=== PATIENT | male | born 1940 | race Caucasian/White ===

== ENCOUNTER 2017-01-19 06:17 | Inpatient (IN) | payer OTHER ==
[2017-01-10 09:19] VITALS: BMI 40.0
--- NOTE | 2017-01-10 09:45 | PAT Medication Instructions ---
Service Date Jan 10, 2017. Current Home Medication List Aspirin (Aspirin Ec), 81 MG PO BID Multivitamin (Multivitamin), 1 TAB PO QAM Omeprazole (Prilosec), 40 MG PO DAILY PRN for STOMACH Simvastatin (Zocor), 10 MG PO QPM Tamsulosin Hcl (Flomax), 0.4 MG PO QPM Tramadol (Ultram), 100 MG PO Q4H PRN for Pain Trazodone Hcl (Trazodone), 100 MG PO HS PRN for Sleep Medication Instructions For Your Scheduled Surgery - One week prior to surgery, switch to once daily Aspirin 81mg - Hold the following medications the morning of surgery: Multivitamin (Multivitamin), 1 TAB PO QAM - Take the following medications the morning of surgery with a sip of water OTHERWISE NOTHING TO EAT OR DRINK AFTER MIDNIGHT: Omeprazole (Prilosec), 40 MG PO DAILY PRN for STOMACH Tramadol (Ultram), 100 MG PO Q4H PRN for Pain (okay to take if needed up to 4 hours prior to surgery) - Take the following medications as scheduled the night before surgery: Simvastatin (Zocor), 10 MG PO QPM Tamsulosin Hcl (Flomax), 0.4 MG PO QPM Trazodone Hcl (Trazodone), 100 MG PO HS PRN for Sleep Tramadol (Ultram), 100 MG PO Q4H PRN for Pain If you have any questions please call us at [phone] or [phone] or [phone]
[2017-01-10 10:24] LABS: BASO % 0.3 %; BASO ABS # 0.02 K/uL (0-0.2); COMPLETE YES; EOS % 3.3 %; HEMATOCRIT 41.2 % (42-52); IG% 0.3 %; LYMPH % 21.2 %; LYMPH ABS # 1.39 K/uL (1.2-3.4); MEAN CELL VOLUME 91.6 fL (80-100); MEAN CORPUSCULAR HEMOGLOBIN 30.9 pg (25-34); MEAN CORPUSCULAR HGB CONC 33.7 g/dl (32-36); MEAN PLATELET VOLUME 10.2 fL (7.4-10.4); NEUT % 65.9 %; PLATELET COUNT 156 K/uL (130-400); WHITE BLOOD COUNT 6.57 K/uL (4.8-10.8)
[2017-01-10 10:29] LABS: URINE APPEARANCE CLEAR (CLEAR); URINE BILIRUBIN NEG (NEG); URINE COLOR DK YELLOW; URINE NITRITE NEG (NEG); URINE PH 6.5 (4.5-7.5); URINE SPECIFIC GRAVITY 1.024 (1.000-1.030); UROBILINOGEN NEG (NEG)
[2017-01-10 10:34] LABS: MANUAL MICROSCOPIC REQUIRED? NO; REVIEW REQ? NO
--- NOTE | 2017-01-10 10:35 | DIAGNOSTIC IMAGING REPORT ---
CHEST PREADMISSION(PA/LAT) CLINICAL HISTORY: PAT preoperative evaluation COMPARISON STUDY: 2015 FINDINGS: Moderate stable cardia megaly. Lungs are clear. Diaphragms are smooth. Stable degenerative changes thoracic spine. IMPRESSION: Moderate stable cardia megaly. Otherwise negative study Electronically signed by: Norman De La Rosa M.D. 01/10/2017 10:33 AM Dictated Date/Time: 01/10/2017 10:33 AM
[2017-01-10 10:43] LABS: PARTIAL THROMBOPLASTIN RATIO 1.1; PROTHROMBIN TIME (PATIENT) 11.2 SECONDS (9.0-12.0)
[2017-01-10 10:48] LABS: ESTIMATED AVERAGE GLUCOSE 140 mg/dl; HA1C FLAG Normal (Normal)
[2017-01-10 11:39] LABS: BUN/CREATININE RATIO 24.7 (10-20); CALCIUM 9.3 mg/dl (8.5-10.1); CREATININE 0.91 mg/dl (0.60-1.40); POTASSIUM 4.4 mmol/L (3.5-5.1)
--- NOTE | 2017-01-18 13:17 | History and Physical ---
History & Physical Date Jan 18, 2017. Chief Complaint Right knee pain History of Present Illness The patient is a 76 year old male with complaints of right knee pain and disability. He has known severe DJD. He had previous successful left TKA. He has failed conservative care and now desires to proceed with right TKA Past Medical/Surgical History Surgical Problems: (1) Post-operative state Additional History Hepatic Disease: No Endocrine Disorder: No Kidney Disease: No Hypertension: No Heart Disease: No Bleeding Tendencies: No Infectious Diseases: No Other: Hypercholesterolemia Allergies Coded Allergies: Azithromycin (Verified Allergy, Mild, HIVES, 03/21/16) Penicillins (Verified Allergy, Mild, HIVES, 03/21/16) Oxycodone (Verified Allergy, Unknown, HIVES, ITCHING, 01/10/17) Home Medications Scheduled Aspirin (Aspirin Ec), 81 MG PO BID Multivitamin (Multivitamin), 1 TAB PO QAM Simvastatin (Zocor), 10 MG PO QPM Tamsulosin Hcl (Flomax), 0.4 MG PO QPM Scheduled PRN Omeprazole (Prilosec), 40 MG PO DAILY PRN for STOMACH Tramadol (Ultram), 100 MG PO Q4H PRN for Pain Trazodone Hcl (Trazodone), 100 MG PO HS PRN for Sleep Physical Examination Skin: warm/dry Eyes: normal inspection, EOMI ENT: normal ENT inspection Head: normocephalic Neck: supple, no adenopathy Respiratory/Chest: lungs clear Cardiovascular: regular rate, rhythm Abdomen / GI: normal bowel sounds Extremities: + pertinent finding (Right knee with varus alignment, ROM ~ -5- 120 degrees) Addiitonal Comments: Xrays: varus aligned knee, bone on bone arthritis medial compartment Diagnosis Right knee end-stage DJD Plan of Treatment Right total knee arthroplasty
[2017-01-19] VITALS (9 sets, daily range): BP systolic 128–178; BP diastolic 72–93; PULSE 53–77; TEMP 36.6–37; O2SAT 93–98; Ht 177.8 cm; Wt 126.7 kg
[~2017-01-19] VITALS: Ht 177.8 cm; Wt 126.7 kg
[~2017-01-19 06:17] MED LIST: ACETAMINOPHEN 500 MG TAB PO SCH; ASPI81TA28 PO; CLINDAMYCIN 600 MG/54 ML D5W 54 ML IV SCH; CeleBREX 200 MG CAP PO SCH; DEXAMETHASONE 4 MG TAB PO SCH; FAMOTIDINE 20 MG TAB PO SCH; GABAPENTIN 300 MG CAP PO SCH; LACTATED RINGER'S 1000ML 1,000 ML IV SCH; LACTATED RINGER'S 1000ML 500 ML IV ONE; METOCLOPRAMIDE HCL 10 MG TAB PO SCH; MULT-506 PO; OMEP40CA PO; ROPIVACAINE 5MG/ML 30 ML 150 MG, BUPIVACAINE/EPINEPHR 0.5% MPF 30 ML, KETOROLAC TROMETH... INFIL SCH; SIMV10TA2 PO; TAMS0.4C38 PO; TRAM-10 PO; TRAZ100T29 PO
[2017-01-19] MEDS ORDERED: BUPIVACAINE 0.25% 30 ML VIAL ONE (06:25)
[2017-01-19] MEDS ORDERED: BUPIVACAINE 0.5 % 5 MG/1 ML PF 10ML VIAL ONE (06:25)
[2017-01-19] MEDS: TRANEXAMIC ACID INJ 1,000 MG in SODIUM CHLORIDE 0.9% 100ML 100 ML IV SCH ×2 (06:30→08:40)
--- NOTE | 2017-01-19 07:06 | History & Physical Bridge Note ---
H&P Re-Evaluation Bridge Note: I have examined the patient, reviewed the History & Physical and in the interval since the performance of the History & Physical I have noted the following changes of clinical significance: No changes noted
[2017-01-19] MEDS ORDERED: POVIDONE-IODINE OP SOLN 30 ML BTL ONE (07:39)
[2017-01-19] MEDS ORDERED: ORTHO JOINT ANESTHETIC ONE (07:39)
[2017-01-19] MEDS ORDERED: BACITRACIN 50000 UNIT VIAL ONE (07:39)
[2017-01-19] MEDS ORDERED: MIDAZOLAM HCL 1 MG/ML 2ML VIAL ONE ×2 (07:45)
[2017-01-19] MEDS ORDERED: FENTANYL CITRATE INJ 50 MCG/1 ML 2 ML VIAL ONE (07:45)
[2017-01-19] MEDS ORDERED: PROPOFOL IV EMULSION 10 MG/ML 20 ML VIAL IV ONE (07:47)
[2017-01-19] MEDS ORDERED: ONDANSETRON INJ 2 MG/ML 2 ML VIAL ONE (07:47)
[2017-01-19] MEDS ORDERED: EpHEDrine SULFATE INJ 50 MG/ML AMP IV PRN (08:00)
[2017-01-19] MEDS ORDERED: ONDANSETRON INJ 2 MG/ML 2 ML VIAL IV PRN ×2 (08:00→11:00)
[2017-01-19] MEDS ORDERED: ATROPINE SULFATE 0.1 MG/ML 5ML SYR IV PRN (08:00)
--- NOTE | 2017-01-19 10:30 | [facility] Operative Report ---
Operative Report Operative Date Jan 19, 2017. Pre-Operative Diagnosis Right Knee End-Stage Degenerative Joint Disease Post-Operative Diagnosis Right Knee End-Stage Degenerative Joint Disease Procedure(s) Performed Right Total Knee Arthroplasty, Cemented Surgeon Dr. Bustamante Industrial Manufacturing Technician Surgeon(s) Kip Morales PA-C Estimated Blood Loss 10 mL Findings OA Specimens A: Right Knee Bone and Tissue Description of Procedure Patient's right leg was prepped and draped in usual sterile manner. The limb was exsanguinated with an Esmarch bandage internal was inflated to 300 mmHg. A longitudinal incision was made some retained tissue was sharply dissected electrocautery and AquaMED history used for hemostasis. A median parapatellar incision was made the patella was everted and the knee was flexed. Fat pad was removed and the medial face the tibia was cleared of soft tissue using a Bovie and a Cannon this is retracted back using a blunt Katerine. Next medullary alignment guide was placed and the proximal tibial osteotomy was made using oscillating saw. This bone fragment was removed using a knife and the bone tenaculum. Next attention was turned to the distal femur. The drill was used to get axis to the femoral canal. The flexible intermedullary guide patricio was placed and the distal femoral cut was made with a 10 mm resection. Following this the femur was sized to a size 5 was chosen and the distal femoral chamfer cuts were made using the oscillating saw. Next the intercondylar notch was cut using the appropriate guide. This bone fragment was removed. A lamina client finance analyst was used to gain access to the menisci which were removed. AquaMED this was used posteriorly to gain hemostasis. 5 trial femoral component was impacted into position and the tibia was presented using a blunt Katerine and a sharp. Size 4 tibial component was chosen and sized to be used. The tibia was prepared using the appropriate punch and a mallet and the tibia was reduced using an 11 mm plastic trial. This gave good reproduction of soft tissue tension and full extension. Next the patellar reaming blade was used to ream the patella and a size 39 patella was chosen size views. The 3 drill holes were used for the pegs. Patella was then placed and he was taken through full range of motion and the patella tracked well. All trial components removed the joint mix was utilized posteriorly and pericapsular really the bone plug was prepared and impacted into the femoral canal and pulsatile irrigation was used throughout the knee. Cement was mixed final components were obtained and cemented in position. Knee was held in extension while cement hardened. A Hemovac drain was placed Following this the wound was closed using #1 Vicryl #2 FiberWire for the extensor mechanism and 0 Dexon for subcutaneous tissue and tanna for skin a Silverlon dressing was applied. The patient was taken to recovery in stable in good condition he tolerated the procedure well. I attest to the content of the Intraoperative Record and any orders documented therein. Any exceptions are noted below.
[2017-01-19] MEDS ORDERED: TRAZODONE HCL 100 MG TAB PO PRN (11:00)
[2017-01-19] MEDS ORDERED: ALUMINUM/MAGNESIUM/SIMETH (MAALOX MAX) 30 ML UDC PO PRN (11:00)
[2017-01-19] MEDS ORDERED: BISACODYL 10 MG SUPP PR PRN (11:00)
[2017-01-19] MEDS ORDERED: MAGNESIUM HYDROXIDE SUSP 30 ML UDC PO PRN (11:00)
[2017-01-19] MEDS ORDERED: MoRPHine SULFATE 4 MG/ML 1 ML CARP\\VIAL IV PRN (11:00)
--- NOTE | 2017-01-19 11:24 | DIAGNOSTIC IMAGING REPORT ---
RIGHT KNEE 1 OR 2 VIEWS ROUTINE CLINICAL HISTORY: Postop examination COMPARISON: None. DISCUSSION: There are postsurgical changes of a total right knee arthroplasty and patellar resurfacing. The femoral and tibial components appear well seated. Overlying skin tanna and surgical drains are evident. There is air in the soft tissues consistent with recent surgery. IMPRESSION: Postsurgical changes of a total right knee arthroplasty. Electronically signed by: Jignesh Newsome M.D. 01/19/2017 11:23 AM Dictated Date/Time: 01/19/2017 11:22 AM
--- NOTE | 2017-01-19 12:23 | Anesthesiology Progress Note ---
Anesthesia Post Op Note Date & Time Jan 19, 2017 at 12:23 Vital Signs Pain Intensity: 0 Vital Signs Past 12 Hours Date Time Temp Pulse Resp B/P (MAP) Pulse Ox O2 Delivery O2 Flow Rate FiO2 01/19/17 11:55 65 18 120/63 97 Nasal Cannula 4 01/19/17 11:45 60 18 119/64 96 Nasal Cannula 4 01/19/17 11:35 66 18 110/63 95 Nasal Cannula 4 01/19/17 11:25 64 18 119/61 97 Nasal Cannula 4 01/19/17 11:15 71 18 121/64 95 Nasal Cannula 4 01/19/17 11:05 69 18 122/57 99 Oxymask 10 01/19/17 10:55 79 18 100/64 99 Oxymask 10 01/19/17 10:48 36.1 77 16 99/47 97 Oxymask 10 01/19/17 06:42 37 63 20 178/93 96 Room Air Notes Mental Status: alert / awake / arousable, participated in evaluation Pt Amnestic to Procedure: Yes Nausea / Vomiting: adequately controlled Pain: adequately controlled Airway Patency, RR, SpO2: stable & adequate BP & HR: stable & adequate Hydration State: stable & adequate Neuraxial Anesthesia: was administered, sensory block is resolving Anesthetic Complications: no major complications apparent
[2017-01-19] MEDS: D5W AND 1/2NSS + 20MEQ KCL 1,000 ML IV SCH (13:58)
[2017-01-19] MEDS: KETOROLAC TROMETHAMINE 15 MG/ML VIAL IV. SCH ×2 (13:59→20:39)
[2017-01-19] MEDS: TRAMADOL HCL 50 MG TAB PO PRN (16:41)
[2017-01-19] MEDS: CLINDAMYCIN IV 600 MG in DEXTROSE 5% 50ML 50 ML IV SCH (18:27)
[2017-01-19] MEDS: FERROUS GLUCONATE 324 MG TAB PO SCH (18:27)
[2017-01-19] MEDS: MoRPHine SULFATE 2 MG/ML CARP IV PRN ×2 (18:28→22:46)
[2017-01-19] MEDS: DOCUSATE SODIUM 100 MG CAP PO SCH (20:39)
[2017-01-19] MEDS: ASPIRIN 81 MG ECTAB PO SCH (20:40)
[2017-01-19] MEDS: TAMSULOSIN HCL 0.4 MG CAP PO SCH (20:40)
[2017-01-19] MEDS: MoRPHine SULFATE CR 15 MG TAB (MS CONTIN) PO SCH (20:40)
[2017-01-19] MEDS: SIMVASTATIN 10 MG TAB PO SCH (20:41)
[2017-01-19] MEDS: SENNA 8.6 MG TAB PO SCH (20:41)
[2017-01-20] VITALS (7 sets, daily range): BP systolic 123–151; BP diastolic 67–76; PULSE 50–58; TEMP 36.5–36.8; O2SAT 94–98
[2017-01-20] MEDS: D5W AND 1/2NSS + 20MEQ KCL 1,000 ML IV SCH (00:14)
[2017-01-20] MEDS: KETOROLAC TROMETHAMINE 15 MG/ML VIAL IV. SCH ×2 (01:47→07:53)
[2017-01-20] MEDS: HYDROCODONE/ACETAMOPHEN 5/325MG TAB PO PRN ×5 (01:47→23:44)
[2017-01-20] MEDS: CLINDAMYCIN IV 600 MG in DEXTROSE 5% 50ML 50 ML IV SCH (01:54)
[2017-01-20 06:47] LABS: MEAN CELL VOLUME 91.4 fL (80-100); MEAN CORPUSCULAR HEMOGLOBIN 30.3 pg (25-34); MEAN CORPUSCULAR HGB CONC 33.1 g/dl (32-36); PLATELET COUNT 178 K/uL (130-400); RED BLOOD COUNT 3.83 M/uL (4.7-6.1); WHITE BLOOD COUNT 16.15 K/uL (4.8-10.8)
[2017-01-20 07:23] LABS: BLOOD UREA NITROGEN 24 mg/dl (7-18); BUN/CREATININE RATIO 23.9 (10-20); CALCIUM 8.8 mg/dl (8.5-10.1); CARBON DIOXIDE 28 mmol/L (21-32); CHLORIDE 104 mmol/L (98-107); CREATININE 0.99 mg/dl (0.60-1.40); GLUCOSE 183 mg/dl (70-99); SODIUM 138 mmol/L (136-145)
--- NOTE | 2017-01-20 07:42 | Orthopedic Progress Note ---
Orthopedic Progress Note Date of Service Jan 20, 2017. Subjective Post OP Day: 1 Reports: feeling well Objective N/V intact, dressing C/D/I (Hemovac in place), toes mobile (Mild footdrop) Date Time Temp Pulse Resp B/P (MAP) Pulse Ox O2 Delivery O2 Flow Rate FiO2 01/20/17 07:20 Room Air 01/20/17 07:20 36.5 50 19 128/76 (93) 96 Room Air 01/20/17 03:30 36.8 56 18 127/68 (87) 96 Room Air 01/20/17 00:29 Room Air 01/19/17 22:43 36.7 53 18 132/72 (92) 94 Room Air 01/19/17 20:52 96 Room Air 01/19/17 19:59 36.6 65 18 142/85 (104) 94 Room Air 01/19/17 16:30 Nasal Cannula 2.0 01/19/17 15:40 36.8 54 20 138/77 (97) 94 Nasal Cannula 2.0 01/19/17 14:40 64 18 128/74 (92) 98 Nasal Cannula 2.0 01/19/17 13:39 93 Nasal Cannula 2.0 01/19/17 13:39 56 18 136/74 (94) 96 Nasal Cannula 2.0 01/19/17 13:10 67 16 143/83 (103) 95 Nasal Cannula 2.0 01/19/17 12:40 37.0 77 18 132/79 (96) 93 Nasal Cannula 2.0 01/19/17 12:40 Nasal Cannula 2.0 01/19/17 12:15 37.7 65 18 118/56 97 Nasal Cannula 4 01/19/17 12:05 65 18 133/67 97 Nasal Cannula 4 01/19/17 11:55 65 18 120/63 97 Nasal Cannula 4 01/19/17 11:45 60 18 119/64 96 Nasal Cannula 4 01/19/17 11:35 66 18 110/63 95 Nasal Cannula 4 01/19/17 11:25 64 18 119/61 97 Nasal Cannula 4 01/19/17 11:15 71 18 121/64 95 Nasal Cannula 4 01/19/17 11:05 69 18 122/57 99 Oxymask 10 01/19/17 10:55 79 18 100/64 99 Oxymask 10 01/19/17 10:48 36.1 77 16 99/47 97 Oxymask 10 Laboratory Results 24 Hours: Test 01/20/17 06:00 Hematocrit 35.0 % Hemoglobin 11.6 g/dL Assessment & Plan Assessment: 76 yo male stable POD #1 s/p right TKA Plan: 1. Med management 2. DVT prophylaxis- ASA, SCDs 3. PT/OT 4. D/C planning- home w/ HH
--- NOTE | 2017-01-20 07:44 | Discharge Instructions ---
Discharge Instructions Date of Service Jan 20, 2017. Admission Reason for Admission: Unilateral Primary Osteoarthritis, Right Knee Discharge Discharge Diagnosis / Problem: Right knee arthritis Discharge Goals Goal(s): Decrease discomfort, Improve function Activity Recommendations Activity Limitations: as noted below Weightbearing Status: Right weightbearing (as tolerated) . Instructions / Follow-Up Instructions / Follow-Up ACTIVITY RECOMMENDATIONS: SELF CARE INSTRUCTIONS AFTER TOTAL KNEE REPLACEMENT A. You may need to continue a physical therapy program after discharge from the hospital. There are several options available to you. Your doctor will assist you in selecting the best one for you. 1. An out-patient facility 2 to 3 times a week for therapy or home therapy. 2. Continue working on all exercises taught to you in the hospital. Your goals should be to increase bending of your knee to 90 degrees and beyond and to fully straighten your knee. B. You may progress at your own pace from walking with a walker or crutches to a cane; then to no assistive devices. C. Make walking a part of your daily routine. Be up as much as comfortable with rest periods throughout the day. Rest with leg elevation is very important. Use the ice wrap frequently for the first 3-4 weeks. D. There are no restrictions on activities. You may ride in a car, shop, participate in health promotion manager and all social activities. E. Wear the long elastic stockings (CANDICE hose) 20 hours a day for 2 weeks after surgery. They can be removed several times a day for laundering and for a bath. F. You may shower, no tub baths until cleared by your doctor. SPECIAL CARE INSTRUCTIONS: VERY IMPORTANT TO READ AND REVIEW A. There are a few signs you need to watch for after you are home. Call [facility] if you notice any of the followin. Increased severe knee pain. Some pain is expected especially when you exercise. 2. Increased swelling in your leg or knee; pain or swelling of the calf muscle in either lower leg. 3. Any fluid drainage from the incision. 4. Shortness of breath or chest pain. B. Please call [facility] at if you have any concerns or questions about your operation or recovery. The doctor or his nurse will return your call promptly. C. You must take antibiotics before dental work, bladder, bowel or other surgery. Your doctor will provide you with a permanent care to carry describing this precaution. IMPORTANT: * REMEMBER TO TAKE ASPIRIN, 81 MG, TWICE DAILY FOR 4 WEEKS UNLESS OTHERWISE DIRECTED. THIS IS YOUR BLOOD THINNER. * HIGH RISK PATIENTS MAY BE PRESCRIBED A STRONGER BLOOD THINNER. THIS WILL BE PROVIDED AT DISCHARGE. * CALL IF INCREASED PAIN, REDNESS, DRAINAGE OR FEVER GREATER THAT 101. * WEAR CANDICE HOSE 20 HOURS PER DAY FOR 2 WEEKS. Silverlon- This is a large adhesive bandage that contains silver ions. This helps your incision heal by fighting off bacteria and protecting it from the outside environment. You are permitted to shower with this dressing. This will remain on your incision for 7 days and then should be removed. Some visible blood or drainage through the dressing window is normal. If there is significant drainage or leaking noted before the 7 days notify your doctor's office immediately. Once removed, keep incision clean and dry. If there is any drainage or redness noted, please call your surgeon. FOLLOW UP VISIT: If appointment is not already scheduled: Please call [facility] to make a follow-up appointment for 2 weeks after your surgery at . Current Hospital Diet Patient's current hospital diet: Regular Diet Discharge Diet Recommended Diet: Regular Diet Procedures Procedures Performed: Right Total Knee Arthroplasty, Cemented Pending Studies Studies pending at discharge: no Laboratory Results Hemoglobin A1c Test 01/10/17 09:58 Range/Units Estimated Average Glucose 140 mg/dl Hemoglobin A1c 6.5 H 4.5-5.6 % Medical Emergencies . Who to Call and When: Medical Emergencies: If at any time you feel your situation is an emergency, please call 911 immediately. . Non-Emergent Contact Non-Emergency issues call your: Surgeon Call Non-Emergent contact if: temperature is above 101.5, your pain is not controlled, wound has increased drainage, wound has increased redness . "Provider Documentation" section prepared by Celio Soto PA-C. . VTE Core Measure Inpt VTE Proph given/why not?: Other Anticoagulation (ASA 81mg bid), T.E.D. Stockings, SCD's [place] Drug Monitoring Program Search Results: patient reviewed within database, no issues identified
--- NOTE | 2017-01-20 08:04 | Anesthesiology Progress Note ---
Anesthesia Post Op Note Date & Time Jan 20, 2017 at 08:04 Vital Signs Pain Intensity: 8.0 Vital Signs Past 12 Hours Date Time Temp Pulse Resp B/P (MAP) Pulse Ox O2 Delivery O2 Flow Rate FiO2 01/20/17 07:20 Room Air 01/20/17 07:20 36.5 50 19 128/76 (93) 96 Room Air 01/20/17 03:30 36.8 56 18 127/68 (87) 96 Room Air 01/20/17 00:29 Room Air 01/19/17 22:43 36.7 53 18 132/72 (92) 94 Room Air 01/19/17 20:52 96 Room Air Notes Mental Status: alert / awake / arousable, participated in evaluation Pt Amnestic to Procedure: Yes Nausea / Vomiting: adequately controlled Pain: adequately controlled Airway Patency, RR, SpO2: stable & adequate BP & HR: stable & adequate Hydration State: stable & adequate Neuraxial Anesthesia: sensory block resolved Anesthetic Complications: no major complications apparent
[2017-01-20] MEDS: FERROUS GLUCONATE 324 MG TAB PO SCH ×3 (08:41→18:52)
[2017-01-20] MEDS: PANTOprazole SOD 40 MG TAB PO SCH (08:41)
[2017-01-20] MEDS: DOCUSATE SODIUM 100 MG CAP PO SCH ×2 (08:41→20:27)
[2017-01-20] MEDS: ASPIRIN 81 MG ECTAB PO SCH ×2 (08:42→20:27)
[2017-01-20] MEDS: MULTIVITAMIN TAB PO SCH (08:42)
[2017-01-20] MEDS: MoRPHine SULFATE CR 15 MG TAB (MS CONTIN) PO SCH ×2 (08:42→20:26)
[2017-01-20] MEDS ORDERED: MULTIVITAMIN TAB PO SCH (09:00)
[2017-01-20] MEDS: TRAMADOL HCL 50 MG TAB PO PRN (15:25)
[2017-01-20] MEDS: SENNA 8.6 MG TAB PO SCH (20:27)
[2017-01-20] MEDS: TAMSULOSIN HCL 0.4 MG CAP PO SCH (20:28)
[2017-01-20] MEDS: SIMVASTATIN 10 MG TAB PO SCH (20:29)
[2017-01-21] MEDS: HYDROCODONE/ACETAMOPHEN 5/325MG TAB PO PRN ×2 (05:54→12:16)
[2017-01-21 06:27] VITALS: BP 148/82; PULSE 66; TEMP 37.3; O2SAT 93
[2017-01-21] MEDS: FERROUS GLUCONATE 324 MG TAB PO SCH ×2 (08:05→12:15)
[2017-01-21] MEDS: PANTOprazole SOD 40 MG TAB PO SCH (08:05)
[2017-01-21] MEDS: MULTIVITAMIN TAB PO SCH (08:06)
[2017-01-21] MEDS: DOCUSATE SODIUM 100 MG CAP PO SCH (08:06)
[2017-01-21] MEDS: TRAMADOL HCL 50 MG TAB PO PRN (08:06)
[2017-01-21] MEDS: MoRPHine SULFATE CR 15 MG TAB (MS CONTIN) PO SCH (08:06)
[2017-01-21] MEDS: ASPIRIN 81 MG ECTAB PO SCH (08:06)
--- NOTE | 2017-01-21 09:41 | Orthopedic Progress Note ---
Orthopedic Progress Note Date of Service Jan 21, 2017. Subjective Post OP Day: 2 Reports: feeling well, pain controlled w PO medications, Denies: chest pain, SOB , nausea / vomiting, light headedness, calf pain Objective calves soft nontender, capillary refill less than 2 sec., dressing C/D/I, A&O x3 , toes mobile Date Time Temp Pulse Resp B/P (MAP) Pulse Ox O2 Delivery O2 Flow Rate FiO2 01/21/17 06:27 37.3 66 18 148/82 (104) 93 Room Air 01/20/17 23:44 Room Air 01/20/17 22:54 36.6 58 16 151/75 (100) 96 Room Air 01/20/17 16:30 94 Room Air 01/20/17 15:46 36.8 53 18 148/72 (97) 94 Room Air 01/20/17 12:00 36.6 53 16 123/69 (87) 96 Room Air 01/20/17 10:53 57 98 Assessment & Plan Assessment: 76 yo male stable POD #2 s/p right TKA Plan: 1. Med management 2. DVT prophylaxis- ASA, SCDs 3. PT/OT 4. D/C planning- home w/ HH Inhouse Planning Pain Management: Ultram, Ramer DVT Prophylaxis: TEDs, SCDs, ASA Discharge Planning Discharge Planning: home with home health Pain Management: Oxycontin, Oxy IR DVT Prophylaxis: TEDs, ASA Therapy: Physical Therapy Discharge Planning Notes: plan for discharge today with HH
[2017-01-21] MEDS ORDERED: FRRG PO (09:43)
[2017-01-21] MEDS ORDERED: HYDR-5688 PO (09:43)
[2017-01-21] MEDS ORDERED: ULT50X PO (09:43)
[2017-01-21 10:34] VITALS: BP 148/82; PULSE 66; TEMP 37.3; O2SAT 93
--- NOTE | 2017-01-24 19:55 | DISCHARGE SUMMARY ---
DISCHARGE DIAGNOSIS: Degenerative joint disease, right knee. SECONDARY DIAGNOSIS: Hypercholesterolemia. CONSULTS: None. COMPLICATIONS: None. PROCEDURE: Right total knee arthroplasty performed by Dr. Bustamante on 01/19/2017. Brief history is as dictated in history and physical. HOSPITAL SUMMARY: The patient was admitted on the above noted date, had the above noted surgery performed which he tolerated well. On the first postoperative day, the patient was feeling well and neurovascularly intact. Dressings were clean, dry and intact. Toes were mobile. He had a very mild footdrop. Vital signs were stable, he was afebrile. Hemoglobin was 11.6. He was started on physical therapy protocol and continued on DVT prophylaxis and pain management. By his second postoperative day, he was feeling well and pain was controlled. He had no complaints. Calves were soft and nontender, capillary refill was less than 2 seconds. Dressings were clean, dry and intact. Toes were mobile. Vital signs were stable, he was afebrile. He was progressing well with physical therapy and was thought he could be discharged to home. For further view, please see chart, lab and x-ray data as per chart. DISCHARGE INSTRUCTIONS: The patient was discharged to home in satisfactory condition on 01/21/2017. DIET: Regular. ACTIVITY: Weightbearing as tolerated on the right lower extremity. Follow TKA instruction sheets with special care instructions as noted. Follow up with Dr. Bustamante in 2 weeks. The patient to call for appointment if one has not been made for you. DISCHARGE MEDICATIONS: Ferrous gluconate 324 mg p.o. t.i.d., [place] 5/325 1-2 tabs p.o. q. 4 hours p.r.n., tramadol 50-100 mg p.o. q. 4 hours p.r.n. Resume aspirin 81 mg p.o. b.i.d., multivitamin 1 tab p.o. q.a.m., omeprazole 40 mg p.o. daily, simvastatin 10 mg p.o. q.p.m., Flomax 0.4 mg p.o. q.p.m., and trazodone 100 mg p.o. at bedtime p.r.n. sleep.
--- NOTE | 2017-01-27 07:10 | CODING QUERY MEDICAL NECESSITY ---
CQSUPPORTING DIAGNOSIS NEEDED A supporting diagnosis is required for the test/procedure performed on this patient in order for us to be reimbursed by the patient's insurance. Please provide a supporting diagnosis for the following test/procedure listed below next to the test name along with your signature. *If there is no additional diagnosis for this patient that would support the following test/procedure please document that below next to the test/procedure. Test(s)/Procedure(s) that require a supporting diagnosis: DOS 01/10/17 GLYCATED HEMOGLOBIN TEST BLOOD COUNT TEST THIS WAS DONE PRESURGERY LAB WORK Provider Signature: Date: Thank you Stacey Goodwin Health Information Management Once completed, please kindly fax back to [phone] For questions please call [phone]
== END 2017-01-21 13:53 | disposition home health service (06) | DRG 470 ==
LOC: C.ACU 06:17 → C.3E 07:00 → ENRESERV 11:57
PROC: 0SRC0J9 Replacement of Right Knee Joint with Synthetic Substitute, Cemented, Open Approach (ICD-10-PCS; principal; 2017-01-19 08:45)
DX: M17.11 Unilateral primary osteoarthritis, right knee (principal); Z01.812 Encounter for preprocedural laboratory examination

== ENCOUNTER 2017-04-28 14:19 | Emergency (ER) | payer OTHER ==
[~2017-04-28] VITALS: Ht 177.8 cm; Wt 125.3 kg
[~2017-04-28 14:19] MED LIST changes: -ACETAMINOPHEN 500 MG TAB PO SCH; -CLINDAMYCIN 600 MG/54 ML D5W 54 ML IV SCH; -CeleBREX 200 MG CAP PO SCH; -DEXAMETHASONE 4 MG TAB PO SCH; -FAMOTIDINE 20 MG TAB PO SCH; +FRRG PO; -GABAPENTIN 300 MG CAP PO SCH; +HYDR-5688 PO; -LACTATED RINGER'S 1000ML 1,000 ML IV SCH; -LACTATED RINGER'S 1000ML 500 ML IV ONE; -METOCLOPRAMIDE HCL 10 MG TAB PO SCH; -ROPIVACAINE 5MG/ML 30 ML 150 MG, BUPIVACAINE/EPINEPHR 0.5% MPF 30 ML, KETOROLAC TROMETH... INFIL SCH; +ULT50X PO
[2017-04-28 14:24] VITALS: TEMP 36.7; Ht 177.8 cm; Wt 125.3 kg
[2017-04-28 14:42] VITALS: O2SAT 98
[2017-04-28] MEDS ORDERED: SODIUM CHLORIDE 0.9% 1000ML 1,000 ML IV STA (14:51)
[2017-04-28 15:02] LABS: BASO % 0.2 %; BASO ABS # 0.02 K/uL (0-0.2); COMPLETE YES; EOS % 1.4 %; HEMATOCRIT 40.4 % (42-52); IG% 0.4 %; LYMPH % 20.1 %; LYMPH ABS # 1.88 K/uL (1.2-3.4); MEAN CELL VOLUME 87.6 fL (80-100); MEAN CORPUSCULAR HEMOGLOBIN 30.2 pg (25-34); MEAN CORPUSCULAR HGB CONC 34.4 g/dl (32-36); MEAN PLATELET VOLUME 9.7 fL (7.4-10.4); MONO % 7.3 %; NEUT % 70.6 %; PLATELET COUNT 192 K/uL (130-400); RED BLOOD COUNT 4.61 M/uL (4.7-6.1); WHITE BLOOD COUNT 9.34 K/uL (4.8-10.8)
--- NOTE | 2017-04-28 15:07 | EMERGENCY ROOM VISIT NOTE ---
History Report prepared by Maria Del Rosario: Sina Vela Under the Supervision of: Dr. Padmini Sims D.O. First contact with patient: 14:30 Chief Complaint: DIZZY Stated Complaint: NAUSEA, DIZZINESS Nursing Triage Summary: triage note: pt ambulatory to triage. pt reports "i feel miserable." pt reports since monday he has had generalized abd pain, bloating, nausea, dizziness "i feel off balance." History of Present Illness The patient is a 76 year old male who presents to the Emergency Room with complaints of worsening global illness and dizziness for the past couple of days. The patient states that he has been having bloating, gas, and abdominal pain, and he still feels like his abdomen is distended. Additionally, the patient states that he has been having rhinorrhea, and he has been having a productive cough. He notes that he has been having a choking feeling in his throat that he has to cough up for the past couple of months. He states that he has not been able to sleep because lying down makes it worse. The patient also states that he has been having 2-3 bowel movements of loose stool per day. The patient states that his dizziness is worse when standing up. He additionally is complaining of fevers, chills, nausea, vomiting, and chest heaviness. Also, he states that he has been having left neck and shoulder pain for the past while, though he attributes that to a fall. The patient states that he was never a smoker or asthmatic, and he states that his is currently sick as well. Pt denies headache, change in vision, shortness of breath, pain with urination, difficulty with urination, and melena. Source of History: patient Onset: the past couple days Position: other (global) Quality: other (illness and dizziness) Timing: worsening (q) Associated Symptoms: + fevers, + chills, + cough, + chest pain, + nausea, + vomiting, + abdominal pain Review of Systems See HPI for pertinent positives & negatives. A total of 10 systems reviewed and were otherwise negative. Past Medical & Surgical Medical Problems: (1) Right knee DJD Surgical Problems: (1) Post-operative state Social History Smoking Status: Never Smoker Marital Status: Housing Status: lives with family Occupation Status: retired Current/Historical Medications Scheduled Aspirin (Aspirin Ec), 81 MG PO BID Multivitamin (Multivitamin), 1 TAB PO QAM Tamsulosin Hcl (Flomax), 0.4 MG PO QPM Scheduled PRN Tramadol (Ultram), 100 MG PO Q4H PRN for Pain Trazodone Hcl (Trazodone), 100 MG PO HS PRN for Sleep Allergies Coded Allergies: Azithromycin (Verified Allergy, Mild, HIVES, 04/28/17) Penicillins (Verified Allergy, Mild, HIVES, 04/28/17) Oxycodone (Verified Allergy, Unknown, HIVES, ITCHING, 04/28/17) Physical Exam Vital Signs Date Time Temp Pulse Resp B/P (MAP) Pulse Ox O2 Delivery O2 Flow Rate FiO2 04/28/17 19:31 77 20 162/96 97 04/28/17 18:46 98 Room Air 04/28/17 17:49 65 19 04/28/17 17:19 74 19 04/28/17 16:36 178/96 04/28/17 16:36 67 18 178/96 99 Room Air 04/28/17 15:19 73 20 04/28/17 15:01 180/100 04/28/17 14:49 67 18 96 04/28/17 14:42 98 Room Air 04/28/17 14:38 66 04/28/17 14:37 155/82 04/28/17 14:24 36.7 55 20 210/130 96 Room Air Physical Exam GENERAL: alert, well appearing, well nourished, no distress, non-toxic EYE EXAM: normal conjunctiva, PERRL and EOM's grossly intact OROPHARYNX: no exudate, no erythema, lips, buccal mucosa, and tongue normal and mucous membranes are moist NOSE: Tenderness to the left maxillary sinus NECK: supple, no nuchal rigidity, no adenopathy, non-tender LUNGS: Diminished breath sounds, but no wheezes rhonchi or rales. Normal chest wall mechanics HEART: no murmurs, S1 normal and S2 normal ABDOMEN: Dull to percussion. Abdomen soft, non-tender, normo-active bowel sounds , no masses, no rebound or guarding. BACK: Back is symmetrical on inspection and there is no deformity, no midline tenderness, no CVA tenderness. SKIN: no rashes and no bruising UPPER EXTREMITIES: upper extremities are grossly normal. Full range of motion, normal pulses. LOWER EXTREMITIES: Trace to 1+ lower extremity edema, full range of motion, normal pulses. NEURO EXAM: Normal sensorium, cranial nerves II-XII grossly intact, normal speech, no gross weakness of arms, no gross weakness of legs. Gross sensation intact. Normal gait. Medical Decision & Procedures ER Provider Diagnostic Interpretation: Radiology results have been interpreted by the radiologist and reviewed by me. ABDOMEN 2VIEW W/PA CHEST RTN CLINICAL HISTORY: Abdominal distention, nausea, abdominal pain COMPARISON STUDY: Chest x-ray dated 01/10/2017 FINDINGS: The heart is enlarged. There is aortic tortuosity/ectasia. There is no free air. There is no focal pulmonary consolidation. Erect and supine views the abdomen reveal gaseous prominence of the stomach, small bowel, and colon. There are no transition zone to indicate bowel obstruction. There are moderately advanced degenerative changes within the spine. There are equivocal renal calculi. There are nonspecific pelvic basin calcifications. IMPRESSION: 1. No evidence of bowel obstruction. No evidence of free air 2. Cardiomegaly 3. Suspected mild ileus 4. Possible nephrolithiasis. Nonspecific pelvic basin calcifications. Electronically signed by: Jignesh Newsome M.D. 04/28/2017 3:54 PM Dictated Date/Time: 04/28/2017 3:52 PM VENOUS DOPPLER LW EXT BILAT HISTORY: Pain. Edema. le edema COMPARISON STUDY: None. FINDINGS: There is normal compressibility, flow, and augmentation within the bilateral lower extremity deep venous systems. IMPRESSION: No DVT within the right or left lower extremity. The above report was generated using voice recognition software. It may contain grammatical, syntax or spelling errors. Electronically signed by: Norman De La Rosa M.D. 04/28/2017 4:20 PM Dictated Date/Time: 04/28/2017 4:[address] HEAD WITHOUT CONTRAST (CT) CLINICAL HISTORY: Dizziness, headache. COMPARISON STUDY: No previous studies for comparison. TECHNIQUE: Axial CT of the brain is performed from the vertex to the skull base. IV contrast was not administered for this examination. A dose lowering technique was utilized adhering to the principles of ALARA. CT DOSE: FINDINGS: No intra or extra-axial mass lesions are visualized. There is no CT evidence of acute cortical infarction. There is no evidence of midline shift. There is no acute hemorrhage. No calvarial fractures are visualized. There are patchy white matter hypodensities likely on a small vessel basis. There is no evidence of pathologic ventricular dilatation. There is no evidence of acute sinusitis IMPRESSION: No acute intracranial findings Electronically signed by: Jignesh Newsome M.D. 04/28/2017 5:09 PM Dictated Date/Time: 04/28/2017 5:[address] ANGIOGRAM OF THE CHEST CLINICAL HISTORY: Shortness of breath. Elevated d-dimer. COMPARISON STUDY: Chest x-ray dated 01/10/2017 TECHNIQUE: Following the IV administration of 116 mL of Optiray-320, CT angiogram of the thorax was performed from the thoracic inlet to the lung bases utilizing the pulmonary embolus protocol. Images are reviewed in the axial, sagittal, and coronal planes. IV contrast was administered without complication. MIP imaging was performed. A dose lowering technique was utilized adhering to the principles of ALARA. CT DOSE: FINDINGS: There is no mediastinal lymphadenopathy. Right hilar lymph nodes are the upper limits of normal in size. The ascending thoracic aorta measures 4 cm. There are no intimal flaps to indicate an aortic dissection. The heart is enlarged. There is no pericardial effusion. Evaluation the lower lobe pulmonary arteries is degraded due to moderate motion artifact. No central emboli are visualized. No pleural effusions are visualized. There is no focal pulmonary consolidation. Parenchymal evaluation is limited due to respiratory motion artifact. There is a 6.6 mm right upper lobe pulmonary nodule as visualized in image #[id number]. There are multiple hepatic hypodensities, likely representing cysts. IMPRESSION: 1. No CT evidence of acute pulmonary embolism. Evaluation of lower lobe pulmonary reactions is degraded due to respiratory motion artifact. 2. No evidence of thoracic aortic dissection. 3. 6.6 mm right upper lobe pulmonary nodule. 6-[address] follow-up is recommended. Please refer to below summary of Fleischner criteria recommendations for follow-up of incidental CT nodules (Kelly Montero, Guidelines for management of small pulmonary nodules detected on CT scans: A statement from the Fleischner Society, Radiology 237: [phone].) SOLID NODULES Solitary nodule size: <6 mm * low risk patients: no follow-up needed * high risk patients: optional CT at 12 months Solitary nodule size: 6-8 mm * low risk patients: follow-up at 6-12 months, then consider further follow-up at 18-24 months * high risk patients: initial follow-up CT at 6-12 months and then at 18-24 months if no change Solitary nodule size: >8 mm * either low or high risk patients - consider follow-up CT at 3 months, and/or CT-PET, and/or biopsy Multiple nodules size: <6 mm * low risk patients: no routine follow-up * high risk patients: optional CT at 12 months Multiple nodules size: 6-8 mm * low risk patients: follow-up at 3-6 months, then consider further follow-up at 18-24 months * high risk patients: follow-up at 3-6 months, then at 18-24 months if no change Multiple nodules size: >8 mm * low risk patients: follow-up at 3-6 months, then consider further follow-up at 18-24 months * high risk patients: follow-up at 3-6 months, then at 18-24 months if no change Note: newly detected indeterminate nodule in persons 35 years of age or older. * low risk patients: minimal or absent history of smoking and/or other known risk factors * high risk patients: history of smoking or of other known risk factors (e.g. first degree relative with lung cancer, or exposure to asbestos, radon, uranium) * if a nodule up to 8 mm is partly solid or is ground glass further follow-up is required after 24 months to exclude possible slow growing adenocarcinoma (JACKELIN) SUBSOLID NODULES Solitary pure ground-glass nodule * nodule size <6 mm - no CT follow-up required * nodule size >=6 mm - follow-up CT at 6-12 months, then every 2 years until 5 years Solitary part-solid nodule * nodule size <6 mm - no CT follow-up required * nodule size >=6 mm - follow-up CT at 3-6 months. If unchanged, and solid component remains <6 mm, then annual follow-up for 5 years Multiple subsolid nodules * nodule size <6 mm - follow-up CT at 3-6 months, consider further follow-up at 2 and 4 years if stable * nodule size >=6 mm - follow-up CT at 3-6 months, subsequent management based on the most suspicious nodule(s) Electronically signed by: Jignesh Newsome M.D. 04/28/2017 5:15 PM Dictated Date/Time: 04/28/2017 5:[address] ANGIO ABD/PELVIS WITH CONTRAST CT DOSE: 3512.91 mGy.cm CLINICAL HISTORY: Shortness of breath. Abdominal pain. Abdominal distention. TECHNIQUE: The patient was scanned in a dynamic helical fashion during intravenous administration of 116 cc of Optiray 320. MIP imaging was performed. Imaging was performed during the arterial phase. A dose lowering technique was utilized adhering to the principles of ALARA. COMPARISON STUDY: None. FINDINGS: There are multiple hepatic hypodense lesions measuring up to 15 mm in size. These approach water attenuation likely represent cysts. No gallbladder abnormalities are visualized. No splenic lesions are visualized. No pancreatic masses are visualized. No adrenal masses are visualized. No renal masses are identified on this arterial phase study. There are bilateral renal calculi. There is a 6 mm calculus at the level of the right ureterovesical junction. No obstructive changes are visualized. There are no transition zones indicate bowel obstruction. There is no evidence of acute diverticulitis. There is no evidence of acute appendicitis. The appendix appears normal. There is no free air. There is no ascites. There are no abnormal pelvic masses. There is no evidence of aortic aneurysm or dissection. The inferior mesenteric artery appears patent. There are 2 right renal arteries. There is a single left renal artery. There is no renal artery stenosis. There is no celiac or superior mesenteric artery stenosis. IMPRESSION: 1. No evidence of abdominal aortic aneurysm or dissection 2. No evidence of renal artery stenosis. No evidence of celiac or superior mesenteric artery stenosis 3. No evidence of bowel obstruction. No evidence of free air. 4. Normal appendix. No evidence of acute diverticulitis. 5. Bilateral nephrolithiasis. 6. Nonobstructing 6 mm distal right ureteral calculus at the level of the ureterovesical junction Electronically signed by: Jignesh Newsome M.D. 04/28/2017 5:21 PM Dictated Date/Time: 04/28/2017 5:16 PM Laboratory Results 04/28/17 14:35 Red Blood Count 4.61, Mean Corpuscular Volume 87.6, Mean Corpuscular Hemoglobin 30.2, Mean Corpuscular Hemoglobin Concent 34.4, Mean Platelet Volume 9.7, Neutrophils (%) (Auto) 70.6, Lymphocytes (%) (Auto) 20.1, Monocytes (%) (Auto) 7.3, Eosinophils (%) (Auto) 1.4, Basophils (%) (Auto) 0.2, Neutrophils # (Auto) 6.59, Lymphocytes # (Auto) 1.88, Monocytes # (Auto) 0.68, Eosinophils # (Auto) 0.13, Basophils # (Auto) 0.02 04/28/17 14:58 Test 04/28/17 14:35 04/28/17 14:58 04/28/17 15:07 04/28/17 15:11 White Blood Count 9.34 K/uL (4.8-10.8) Red Blood Count 4.61 M/uL (4.7-6.1) Hemoglobin 13.9 g/dL (14.0-18.0) Hematocrit 40.4 % (42-52) Mean Corpuscular Volume 87.6 fL (80-100) Mean Corpuscular Hemoglobin 30.2 pg (25-34) Mean Corpuscular Hemoglobin Concent 34.4 g/dl (32-36) Platelet Count 192 K/uL (130-400) Mean Platelet Volume 9.7 fL (7.4-10.4) Neutrophils (%) (Auto) 70.6 % Lymphocytes (%) (Auto) 20.1 % Monocytes (%) (Auto) 7.3 % Eosinophils (%) (Auto) 1.4 % Basophils (%) (Auto) 0.2 % Neutrophils # (Auto) 6.59 K/uL (1.4-6.5) Lymphocytes # (Auto) 1.88 K/uL (1.2-3.4) Monocytes # (Auto) 0.68 K/uL (0.11-0.59) Eosinophils # (Auto) 0.13 K/uL (0-0.5) Basophils # (Auto) 0.02 K/uL (0-0.2) RDW Standard Deviation 44.3 fL (36.4-46.3) RDW Coefficient of Variation 13.8 % (11.5-14.5) Immature Granulocyte % (Auto) 0.4 % Immature Granulocyte # (Auto) 0.04 K/uL (0.00-0.02) Prothrombin Time 10.6 SECONDS (9.0-12.0) Prothromb Time International Ratio 1.0 (0.9-1.1) D-Dimer 3840 ug/L FEU (0-500) Anion Gap 7.0 mmol/L (3-11) Est Creatinine Clear Calc Drug Dose 103.7 ml/min Estimated GFR () 100.5 Estimated GFR (Non- 86.7 BUN/Creatinine Ratio 15.9 (10-20) Calcium Level 9.1 mg/dl (8.5-10.1) Magnesium Level 2.0 mg/dl (1.8-2.4) Total Bilirubin 0.3 mg/dl (0.2-1) Aspartate Amino Transf (AST/SGOT) 22 U/L (15-37) Alanine Aminotransferase (ALT/SGPT) 31 U/L (12-78) Alkaline Phosphatase 91 U/L (45-117) Troponin I < 0.015 ng/ml (0-0.045) Pro-B-Type Natriuretic Peptide 130 pg/ml (0-900) Total Protein 7.9 gm/dl (6.4-8.2) Albumin 3.8 gm/dl (3.4-5.0) Globulin 4.1 gm/dl (2.5-4.0) Albumin/Globulin Ratio 0.9 (0.9-2) Urine Color YELLOW Urine Appearance CLEAR (CLEAR) Urine pH 6.0 (4.5-7.5) Urine Specific [place] 1.021 (1.000-1.030) Urine Protein NEG (NEG) Urine Glucose (UA) 1+ (NEG) Urine Ketones NEG (NEG) Urine Occult Blood NEG (NEG) Urine Nitrite NEG (NEG) Urine Bilirubin NEG (NEG) Urine Urobilinogen NEG (NEG) Urine Leukocyte Esterase NEG (NEG) Influenza Type A Antigen Neg for Influ A (NEG) Influenza Type B Antigen Neg for Influ B (NEG) Test 04/28/17 15:20 Bedside Lactic Acid Venous 2.45 mmol/L (0.90-1.70) Laboratory results per my review. Medications Administered Medications (Trade) Dose Ordered Sig/Loyd Route Start Time Stop Time Status Last Admin Dose Admin Sodium Chloride 1,000 ml @ 125 mls/hr Q8H STAT IV 04/28/17 14:51 04/28/17 20:04 DC 04/28/17 15:14 125 MLS/HR ECG Indication: other (dizziness) Rate (beats per minute): 74 Rhythm: sinus rhythm Findings: 1st degree AV block, PVC (occasional), other (Intraventricular conduction delay. Normal axis.) ED Course 1430: The patient was evaluated in room A9. A complete history and physical exam was performed. The patient's blood pressure was now better at 155/82 compared to the first reading. 1451: Sodium Chloride 1000 ml @ 125 mls/hr IV 1739: I reevaluated the patient, and he was feeling well. 1850: Upon reevaluation, the patient is feeling better. I discussed the findings and the treatment plan with the patient. He verbalizes agreement and understanding. He was discharged home. Medical Decision Differential diagnosis: Etiologies such as benign positional vertigo, dehydration, hypovolemia, anemia, tumor, infection, hypoglycemia, electrolyte abnormalities, cardiac sources, intracerebral event, toxicologic, neurologic, appendicitis, diverticulitis, PUD , biliary pathology, UTI, pancreatitis, obstruction, mesenteric ischemia, aortic pathology, infections, inflammatory bowel disease, renal colic, as well as others were entertained. Patient well-appearing here despite complaints. Patient with multiple complaints, which seemed related to recent viral illness given sick contact with with similar symptoms. Patient was other ongoing complaints of been chronic over the last several months. Labs and imaging reassuring. Doubt acute cardiac etiology, doubt bacteremia/sepsis, no evidence of CVA, acute pulmonary pathology, acute GI or pathology. Patient states only lightheaded/ dizzy with position change, negative orthostatics, patient able to ambulate with a steady gait and without hypoxia. Vital signs otherwise stable. Patient noted to have hypertension, initially thought to be due to anxiety situation has blood pressure then improved. However close at discharge blood pressure began elevated again. Doubt hypertensive emergency/urgency. Patient with likely component of chronic underlying hypertension. Encouraged him to follow closely with family doctor to have this rechecked as well as his other symptoms. Discussed with him possible causes of his hypertension, discussed use of [id number] medications in light of possible underlying hypertension , discussed symptoms to watch and return for, he verbalized understanding was agreeable with plan. No evidence of dissection, AAA, doubt nephrotic syndrome, no acute kidney failure. Kidney stone noted at the UVJ on CT, however patient with no acute pain or symptoms to suggest anal colic or acute obstruction. Doubt ACS given negative troponin after weeks of chest pain, more likely related to mechanical fall as patient described. Medication Reconcilliation Current Medication List: was personally reviewed by me Blood Pressure Screening Patient's blood pressure: Elevated blood pressure Impression Primary Impression: URI (upper respiratory infection) Additional Impressions: Dizziness Hypertension Obesity Scribe Attestation The scribe's documentation has been prepared under my direction and personally reviewed by me in its entirety. I confirm that the note above accurately reflects all work, treatment, procedures, and medical decision making performed by me. Departure Information Dispostion Home / Self-Care Referrals Aamir Wheatley DO (PCP) Forms HOME CARE DOCUMENTATION FORM, IMPORTANT VISIT INFORMATION Patient Instructions My [facility] Additional Instructions Please continue regular medications as prescribed. Please try to sip clear liquids at frequent intervals to stay well-hydrated. If you have any worsening dizziness, abdominal pain, develop vomiting, diarrhea, fevers, chest pain, trouble breathing, noticed blood in your sputum, headache, vision changes, or you've any other new concerns, please return the emergency room. Please follow- up with your family doctor regarding your blood pressure as it was elevated here and you may need to be started on blood pressure medicine on a daily basis. Problem Qualifiers Primary Impression: URI (upper respiratory infection) URI type: unspecified URI Qualified Codes: J06.9 - Acute upper respiratory infection, unspecified Additional Impressions: Hypertension Hypertension type: essential hypertension Qualified Codes: I10 - Essential ( primary) hypertension Obesity Obesity type: due to excess calories Obesity classification: unspecified obesity classification Serious obesity comorbidity presence: unspecified whether serious comorbidity present Qualified Codes: E66.09 - Other obesity due to excess calories
[2017-04-28 15:12] LABS: PROTHROMBIN TIME (PATIENT) 10.6 SECONDS (9.0-12.0)
[2017-04-28 15:21] LABS: URINE APPEARANCE CLEAR (CLEAR); URINE BILIRUBIN NEG (NEG); URINE COLOR YELLOW; URINE NITRITE NEG (NEG); URINE SPECIFIC GRAVITY 1.021 (1.000-1.030); UROBILINOGEN NEG (NEG); ZZUR CULT IF INDIC CLEAN CATCH NO
[2017-04-28 15:24] LABS: MANUAL MICROSCOPIC REQUIRED? NO; REVIEW REQ? NO
[2017-04-28 15:28] LABS: ALT/SGPT 31 U/L (12-78); BLOOD UREA NITROGEN 13 mg/dl (7-18); BUN/CREATININE RATIO 15.9 (10-20); CALCIUM 9.1 mg/dl (8.5-10.1); CARBON DIOXIDE 29 mmol/L (21-32); CHLORIDE 104 mmol/L (98-107); CREATININE 0.83 mg/dl (0.60-1.40); GLUCOSE 177 mg/dl (70-99); SODIUM 140 mmol/L (136-145)
[2017-04-28 15:33] LABS: ALB/GLOB RATIO 0.9 (0.9-2); ALKALINE PHOSPHATASE 91 U/L (45-117); AST/SGOT 22 U/L (15-37)
--- NOTE | 2017-04-28 15:55 | DIAGNOSTIC IMAGING REPORT ---
ABDOMEN 2VIEW W/PA CHEST RTN CLINICAL HISTORY: Abdominal distention, nausea, abdominal pain COMPARISON STUDY: Chest x-ray dated 01/10/2017 FINDINGS: The heart is enlarged. There is aortic tortuosity/ectasia. There is no free air. There is no focal pulmonary consolidation. Erect and supine views the abdomen reveal gaseous prominence of the stomach, small bowel, and colon. There are no transition zone to indicate bowel obstruction. There are moderately advanced degenerative changes within the spine. There are equivocal renal calculi. There are nonspecific pelvic basin calcifications. IMPRESSION: 1. No evidence of bowel obstruction. No evidence of free air 2. Cardiomegaly 3. Suspected mild ileus 4. Possible nephrolithiasis. Nonspecific pelvic basin calcifications. Electronically signed by: Jignesh Newsome M.D. 04/28/2017 3:54 PM Dictated Date/Time: 04/28/2017 3:52 PM
--- NOTE | 2017-04-28 16:21 | DIAGNOSTIC IMAGING REPORT ---
VENOUS DOPPLER LW EXT BILAT HISTORY: Pain. Edema. le edema COMPARISON STUDY: None. FINDINGS: There is normal compressibility, flow, and augmentation within the bilateral lower extremity deep venous systems. IMPRESSION: No DVT within the right or left lower extremity. The above report was generated using voice recognition software. It may contain grammatical, syntax or spelling errors. Electronically signed by: Norman De La Rosa M.D. 04/28/2017 4:20 PM Dictated Date/Time: 04/28/2017 4:20 PM
--- NOTE | 2017-04-28 17:10 | DIAGNOSTIC IMAGING REPORT ---
CT HEAD WITHOUT CONTRAST (CT) CLINICAL HISTORY: Dizziness, headache. COMPARISON STUDY: No previous studies for comparison. TECHNIQUE: Axial CT of the brain is performed from the vertex to the skull base. IV contrast was not administered for this examination. A dose lowering technique was utilized adhering to the principles of ALARA. CT DOSE: FINDINGS: No intra or extra-axial mass lesions are visualized. There is no CT evidence of acute cortical infarction. There is no evidence of midline shift. There is no acute hemorrhage. No calvarial fractures are visualized. There are patchy white matter hypodensities likely on a small vessel basis. There is no evidence of pathologic ventricular dilatation. There is no evidence of acute sinusitis IMPRESSION: No acute intracranial findings Electronically signed by: Jignesh Newsome M.D. 04/28/2017 5:09 PM Dictated Date/Time: 04/28/2017 5:08 PM
--- NOTE | 2017-04-28 17:16 | DIAGNOSTIC IMAGING REPORT ---
CT ANGIOGRAM OF THE CHEST CLINICAL HISTORY: Shortness of breath. Elevated d-dimer. COMPARISON STUDY: Chest x-ray dated 01/10/2017 TECHNIQUE: Following the IV administration of 116 mL of Optiray-320, CT angiogram of the thorax was performed from the thoracic inlet to the lung bases utilizing the pulmonary embolus protocol. Images are reviewed in the axial, sagittal, and coronal planes. IV contrast was administered without complication. MIP imaging was performed. A dose lowering technique was utilized adhering to the principles of ALARA. CT DOSE: FINDINGS: There is no mediastinal lymphadenopathy. Right hilar lymph nodes are the upper limits of normal in size. The ascending thoracic aorta measures 4 cm. There are no intimal flaps to indicate an aortic dissection. The heart is enlarged. There is no pericardial effusion. Evaluation the lower lobe pulmonary arteries is degraded due to moderate motion artifact. No central emboli are visualized. No pleural effusions are visualized. There is no focal pulmonary consolidation. Parenchymal evaluation is limited due to respiratory motion artifact. There is a 6.6 mm right upper lobe pulmonary nodule as visualized in image #[id number]. There are multiple hepatic hypodensities, likely representing cysts. IMPRESSION: 1. No CT evidence of acute pulmonary embolism. Evaluation of lower lobe pulmonary reactions is degraded due to respiratory motion artifact. 2. No evidence of thoracic aortic dissection. 3. 6.6 mm right upper lobe pulmonary nodule. 6-[address] follow-up is recommended. Please refer to below summary of Fleischner criteria recommendations for follow-up of incidental CT nodules (Kelly Montero, Guidelines for management of small pulmonary nodules detected on CT scans: A statement from the Fleischner Society, Radiology 237: [phone].) SOLID NODULES Solitary nodule size: <6 mm * low risk patients: no follow-up needed * high risk patients: optional CT at 12 months Solitary nodule size: 6-8 mm * low risk patients: follow-up at 6-12 months, then consider further follow-up at 18-24 months * high risk patients: initial follow-up CT at 6-12 months and then at 18-24 months if no change Solitary nodule size: >8 mm * either low or high risk patients - consider follow-up CT at 3 months, and/or CT-PET, and/or biopsy Multiple nodules size: <6 mm * low risk patients: no routine follow-up * high risk patients: optional CT at 12 months Multiple nodules size: 6-8 mm * low risk patients: follow-up at 3-6 months, then consider further follow-up at 18-24 months * high risk patients: follow-up at 3-6 months, then at 18-24 months if no change Multiple nodules size: >8 mm * low risk patients: follow-up at 3-6 months, then consider further follow-up at 18-24 months * high risk patients: follow-up at 3-6 months, then at 18-24 months if no change Note: newly detected indeterminate nodule in persons 35 years of age or older. * low risk patients: minimal or absent history of smoking and/or other known risk factors * high risk patients: history of smoking or of other known risk factors (e.g. first degree relative with lung cancer, or exposure to asbestos, radon, uranium) * if a nodule up to 8 mm is partly solid or is ground glass further follow-up is required after 24 months to exclude possible slow growing adenocarcinoma (JACKELIN) SUBSOLID NODULES Solitary pure ground-glass nodule * nodule size <6 mm - no CT follow-up required * nodule size >=6 mm - follow-up CT at 6-12 months, then every 2 years until 5 years Solitary part-solid nodule * nodule size <6 mm - no CT follow-up required * nodule size >=6 mm - follow-up CT at 3-6 months. If unchanged, and solid component remains <6 mm, then annual follow-up for 5 years Multiple subsolid nodules * nodule size <6 mm - follow-up CT at 3-6 months, consider further follow-up at 2 and 4 years if stable * nodule size >=6 mm - follow-up CT at 3-6 months, subsequent management based on the most suspicious nodule(s) Electronically signed by: Jignesh Newsome M.D. 04/28/2017 5:15 PM Dictated Date/Time: 04/28/2017 5:09 PM
--- NOTE | 2017-04-28 17:23 | DIAGNOSTIC IMAGING REPORT ---
CT ANGIO ABD/PELVIS WITH CONTRAST CT DOSE: 3512.91 mGy.cm CLINICAL HISTORY: Shortness of breath. Abdominal pain. Abdominal distention. TECHNIQUE: The patient was scanned in a dynamic helical fashion during intravenous administration of 116 cc of Optiray 320. MIP imaging was performed. Imaging was performed during the arterial phase. A dose lowering technique was utilized adhering to the principles of ALARA. COMPARISON STUDY: None. FINDINGS: There are multiple hepatic hypodense lesions measuring up to 15 mm in size. These approach water attenuation likely represent cysts. No gallbladder abnormalities are visualized. No splenic lesions are visualized. No pancreatic masses are visualized. No adrenal masses are visualized. No renal masses are identified on this arterial phase study. There are bilateral renal calculi. There is a 6 mm calculus at the level of the right ureterovesical junction. No obstructive changes are visualized. There are no transition zones indicate bowel obstruction. There is no evidence of acute diverticulitis. There is no evidence of acute appendicitis. The appendix appears normal. There is no free air. There is no ascites. There are no abnormal pelvic masses. There is no evidence of aortic aneurysm or dissection. The inferior mesenteric artery appears patent. There are 2 right renal arteries. There is a single left renal artery. There is no renal artery stenosis. There is no celiac or superior mesenteric artery stenosis. IMPRESSION: 1. No evidence of abdominal aortic aneurysm or dissection 2. No evidence of renal artery stenosis. No evidence of celiac or superior mesenteric artery stenosis 3. No evidence of bowel obstruction. No evidence of free air. 4. Normal appendix. No evidence of acute diverticulitis. 5. Bilateral nephrolithiasis. 6. Nonobstructing 6 mm distal right ureteral calculus at the level of the ureterovesical junction Electronically signed by: Jignesh Newsome M.D. 04/28/2017 5:21 PM Dictated Date/Time: 04/28/2017 5:16 PM
[2017-04-28 19:31] VITALS: BP 162/96; PULSE 77; O2SAT 97
== END 2017-04-28 19:42 | disposition home or self-care (01) ==
LOC: C.EDB 14:21 → C.EDA 19:42
DX: J06.9 Acute upper respiratory infection, unspecified (principal); R42 Dizziness and giddiness; I10 Essential (primary) hypertension; E66.9 Obesity, unspecified; I44.0 Atrioventricular block, first degree; Z79.82 Long term (current) use of aspirin; Z79.899 Other long term (current) drug therapy; Z88.0 Allergy status to penicillin; Z88.3 Allergy status to other anti-infective agents; Z88.5 Allergy status to narcotic agent

== ENCOUNTER → 2017-11-13 | Outpatient (CLI) | payer OTHER ==
[~2017-11-13] MED LIST changes: -FRRG PO; -HYDR-5688 PO; -OMEP40CA PO; -SIMV10TA2 PO; -ULT50X PO
--- NOTE | 2017-11-13 11:56 | DIAGNOSTIC IMAGING REPORT ---
CHEST 2 VIEWS ROUTINE CLINICAL HISTORY: R07.89 OTHER CHEST PAIN CHEST HEAVINESS COMPARISON STUDY: 04/28/2017 FINDINGS: The heart is mildly enlarged. There is no focal pulmonary consolidation. There is no failure. There are no pleural effusions. Degenerative changes are present within the dorsal spine.[ IMPRESSION: Mild cardiomegaly. No acute findings. Electronically signed by: Jignesh Newsome M.D. 11/13/2017 11:54 AM Dictated Date/Time: 11/13/2017 11:53 AM
== END | disposition home or self-care (01) ==
LOC: C.RAD1850 11:27
PROVIDERS: ATTEND Family Medicine
DX: R07.89 Other chest pain (principal)

== ENCOUNTER 2025-01-10 18:33 | Observation (INO) ==
--- NOTE | 2025-01-10 18:49 | Emergency Department Note ---
Impression & Plan Volume overload, S/P TAVR (transcatheter aortic valve replacement), S/P right coronary artery (RCA) stent placement, Dizziness ED Provider Note NAME: EMI SUE AGE: 84 SEX: M : 1940 ARRIVES VIA: Walk-In INFORMANT: Patient, son ED PROVIDER(S): [employer] MD CHIEF COMPLAINT: Chest pain, dizziness MEDICAL DECISION MAKING: Patient presents with the above. IV was established and blood work was obtained. Patient was ordered the rest of a full dose aspirin 243 mg. Blood work shows a normal white count normal platelet count. Kidney function unremarkable blood sugar 155. Chest x-ray does show cardiomegaly. Jorge the patient may have some volume overload. Patient was ordered Bumex 0.5 mg IV. I did speak with the on-call hospitalist service Dr. Zaman and the patient was admitted to the medicine service. I did update the patient about the findings and recommendations he and his son are comfortable plan of care. Discussion w/ other healthcare providers: Dr. Zaman inpatient medicine service Prior /Outside records reviewed: None Differential diagnosis: Cardiac ischemia, aortic dissection, pulmonary embolism, pneumothorax, pneumonia, pericarditis, myocarditis, GERD, cholecystitis, pancreatitis, musculoskeletal, as well as other pathologies were considered. Diagnostics, as interpreted by me: ECG: Machine read as junctional rhythm but patient appears to have P waves with prolonged VA, sinus bradycardia rate of 53 borderline QRS with left axis deviation no obvious STEMI. Cardiac monitoring: An order was placed for continuous cardiac monitoring. The monitor shows a rate of 52 with sinus rhythm. Patient was placed on pulse oximetry Medical decision rules: None Imaging studies: I informally interpreted the patient's chest x-ray shows cardiomegaly with formal report to follow. HPI: Patient presents due to concern for chest pain as well as dizziness. The patient states that he was feeling quite well until shortly after lunchtime he drove out to get the mail and a doing so he had a heaviness over his left chest. Patient did have associated nausea but no vomiting. May be mildly clammy. No radiation of pain. Patient does report that he had a stent that was placed in his right coronary in December by Dr. Howard and subsequently had a TAVR completed last Monday with Dr. Betancourt. Both procedures were completed at [facility]. Patient denies any shortness of breath. Patient reports that he was recent seen by his PCP in [place] and started on medication that may help with his "congestion." When discussing this it sounds as though he is referring to swelling in the legs as well as congestion in the chest or volume Patient's TAVR was bovine and is not another blood thinners other than Plavix in addition to his baby aspirin. overload. PAST MEDICAL HISTORY: See Below PAST SURGICAL HISTORY: See Below SOCIAL HISTORY: See Below HOME MEDICATIONS: See Below ALLERGIES: See Below VITALS: See Below PHYSICAL EXAMINATION: GENERAL: Mildly fatigable in appearance. EYE EXAM: Normal conjunctiva. PERRL, no anisocoria and EOM's grossly intact w/o pain. OROPHARYNX: Moist mucus membranes, edentulous. NECK: Trachea midline, no stridor. LUNGS: Bibasilar crackles noted. Normal chest wall mechanics. HEART: NSR, no MRG. ABDOMEN: Abdomen soft, non-tender, no masses, no rebound or guarding. BACK: No CVA TTP. SKIN: No rashes and no bruising. UPPER EXTREMITIES: Upper extremities are grossly normal. LOWER EXTREMITIES: Grossly normal, 1-2+ lower extremity edema without calf pain or erythema. No obvious asymmetry. NEURO EXAM: Awake and alert, follows commands, no obvious facial asymmetry, normal speech, moves all 4 extremities. Past Med/Surg History Problem List (Updated 01/11/25 @ 00:37 by [employer] MD) Dizziness (Acute) S/P right coronary artery (RCA) stent placement (Acute) Volume overload (Acute) S/P TAVR (transcatheter aortic valve replacement) (Acute) Anemia Chest pain Trigeminal neuralgia (Acute) Pulmonary nodule Abnormal CT scan of lung Cough Chronic sinusitis Chronic SI joint pain Erectile dysfunction Benign localized prostatic hyperplasia with lower urinary tract symptoms (LUTS) Drug allergy Angioedema Post-operative state Right knee DJD Surgical History History of tonsillectomy History of neck surgery History of knee replacement History of carpal tunnel surgery History of cataract surgery Family History Father Cardiac disorder Diabetes Mother Cardiac disorder Diabetes Brother Cancer Social History Smoking Status: Never smoker Second Hand Exposure: No; Do You Dip or Chew Tobacco: No; Hx Alcohol Use: No Hx Substance Use: No Preferred Language: Occitan Communication Ability: Effective 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 Beliefs That Will Affect Care: None marital status: Current Living Situation: Spouse current occupational status: retired Other Information That Helps Us Care for You: No Feels Safe at Home: Yes Safety Concerns: Feels Safe At This Time Assistive Devices: Denture - Upper, Glasses and Walker Allergies Allergies Allergy/AdvReac Type Severity Reaction Status Date / Time azithromycin Allergy Mild Hives Verified 01/10/25 20:28 Penicillins Allergy Mild HIVES Verified 01/10/25 20:28 Home Meds Home Medications Medication Instructions Recorded Confirmed ezetimibe 10 mg tablet (Zetia) 10 mg PO QAM 08/30/19 01/10/25 trazodone 100 mg tablet 100 mg PO 06/04/21 01/10/25 albuterol sulfate 90 mcg/actuation 2 puff inhalation Q6H PRN 07/17/23 01/10/25 aerosol inhaler Shortness Of Breath Or Wheezing aspirin 81 mg tablet,delayed 81 mg PO QAM 07/17/23 01/10/25 release (Adult Low Dose Aspirin) carbamazepine 200 mg 200 mg PO BID 05/06/24 01/10/25 capsule,extended release [id number] fluticasone propionate 50 1 spray intranasal DAILY 05/13/24 01/10/25 mcg/actuation nasal spray,suspension amlodipine 5 mg tablet 5 mg PO QAM 01/10/25 01/10/25 bumetanide 1 mg tablet 1 mg PO QAM 01/10/25 01/10/25 clopidogrel 75 mg tablet 75 mg PO QAM 01/10/25 01/10/25 doxycycline hyclate 100 mg tablet 100 mg PO BID 01/10/25 01/10/25 melatonin 5 mg PO HS 01/10/25 01/10/25 nitroglycerin 0.4 mg sublingual 0.4 mg sublingual .PRN/UD PRN 01/10/25 01/10/25 tablet Chest Pain spironolactone 25 mg tablet 25 mg PO QAM 01/10/25 01/10/25 Results & Data (ED) Vital Signs Vital Signs - 24 hr 01/10/25 18:34 01/10/25 18:43 01/10/25 18:46 Temperature 36.4 C L Temperature Source Temporal Artery Scan Pulse Rate 59 L 54 L 54 L Pulse Rhythm Respiratory Rate 19 16 Respiratory Effort / Characteristics Non-Labored Spontaneous Respiratory Depth Normal Blood Pressure 149/87 H 153/86 H Blood Pressure Mean 107 128 Pulse Oximetry 95 99 Oxygen Delivery Method Room Air Oxygen Flow Rate Sepsis Recent Fever Within 48 Hours No Sepsis New/Unexplained Change in Mental Status N/A Sepsis Action Taken by Nursing No Action Required 01/10/25 18:50 01/10/25 19:00 01/10/25 19:12 Temperature Temperature Source Pulse Rate 55 L 54 L Pulse Rhythm Regular Respiratory Rate 23 16 Respiratory Effort / Characteristics Respiratory Depth Blood Pressure 145/84 H Blood Pressure Mean 115 Pulse Oximetry 99 99 98 Oxygen Delivery Method Room Air Room Air Oxygen Flow Rate 0 Sepsis Recent Fever Within 48 Hours Sepsis New/Unexplained Change in Mental Status Sepsis Action Taken by Nursing 01/10/25 19:31 01/10/25 20:00 01/10/25 20:03 Temperature Temperature Source Pulse Rate 52 L 51 L 51 L Pulse Rhythm Respiratory Rate 14 19 Respiratory Effort / Characteristics Respiratory Depth Blood Pressure 135/79 140/85 140/80 Blood Pressure Mean 92 106 100 Pulse Oximetry 97 98 98 Oxygen Delivery Method Room Air Oxygen Flow Rate Sepsis Recent Fever Within 48 Hours Sepsis New/Unexplained Change in Mental Status Sepsis Action Taken by [facility] Medications Current Medication List: was personally reviewed by me Laboratory Data Attestation: I reviewed the patient's lab results. 01/10/25 18:48 01/10/25 18:48 Lab Results 01/10/25 Range/Units 18:48 WBC 6.40 (4.8-10.8) K/ul RBC 3.51 L (4.70-6.10) M/uL Hgb 11.7 L (14.0-18.0) g/dl Hct 32.8 L (42.0-52.0) % MCV 93.4 (80.0-100.0) fL MCH 33.3 (25.0-34.0) pg MCHC 35.7 (32.0-36.0) g/dL RDW Std Deviation 41.8 (36.4-46.3) fL RDW Coeff of Rylie 12.1 (11.5-14.5) % Plt Count 233 (130-400) K/uL MPV 9.3 L (9.4-12.4) fL Immature Gran % (Auto) 0.9 % Neut % (Auto) 61.3 % Lymph % (Auto) 23.1 % [place] % (Auto) 10.6 % Eos % (Auto) 3.6 % Baso % (Auto) 0.5 % Neut # (Auto) 3.92 (1.40-6.50) K/uL Lymph # (Auto) 1.48 (1.20-3.40) K/uL [place] # (Auto) 0.68 H (0.11-0.59) K/uL Eos # (Auto) 0.23 (0.00-0.50) K/uL Baso # (Auto) 0.03 (0.00-0.20) K/uL Immature Gran # (Auto) 0.06 (0.01-0.20) K/uL PT 10.9 (9.0-12.0) Seconds INR 1.0 (0.9-1.1) APTT 31 (21-31) Seconds PTT Ratio 1.2 Sodium 138 (136-145) mmol/L Potassium 3.9 (3.5-5.1) mmol/L Chloride 102 (98-107) mmol/L Carbon Dioxide 29 (21-32) mmol/L Anion Gap 7 (3-11) BUN 21 (6-23) mg/dl Creatinine 0.81 (0.6-1.4) mg/dl Est Cr Clr Drug Dosing 88.9 ml/min eGFR 88.03 BUN/Creatinine Ratio 25.9 H (10-20) Glucose 155 H (70-99(Fasting)) mg/dl Calcium 9.1 (8.6-10.3) mg/dl Total Bilirubin 0.5 (0.2-1.0) mg/dl AST 23 (13-39) U/L ALT 41 (7-52) U/L Alkaline Phosphatase 89 (34-104) U/L Troponin I High Sens 14.6 (0-20) pg/ml B-Natriuretic Peptide 52 (0-100) pg/ml Total Protein 7.4 (6.0-8.3) gm/dl Albumin 3.8 (3.4-5.0) gm/dl Globulin 3.6 (2.5-4.0) gm/dl Albumin/Globulin Ratio 1.1 (0.9-2) Lipase 13 (11-82) U/L Administered Medications Discontinued Medications Aspirin (Aspirin Chew 324 Mg) 243 mg PO NOW STA Stop: 01/10/25 19:09 Last Admin: 01/10/25 19:34 Dose: 243 mg Documented By: UVALDO Bumetanide 0.5 mg/ Syringe 2 mls @ 4 mls/min IV ONE ONE Stop: 01/10/25 20:05 Last Admin: 01/10/25 23:53 Dose: Not Given Documented By: KJP Imaging Data Radiologist's Impression: Chest X-Ray 01/10/25 19:08 Chest radiograph, one view History: Chest pain Comparison: None Findings: Single AP view of the chest performed. No focal consolidation or pleural effusion. No pneumothorax. Aortic valve replacement. Battery pack generator over the left chest. The cardiomediastinal silhouette is within normal limits. Normal pulmonary vascularity. No evidence for lymphadenopathy. No visualized bony or soft tissue abnormality. Impression: Normal chest radiograph Electronically signed by Junior Rdz 01-10-2025 8:41 PM Discharge Plan Visit Data Chief Complaint: Chest Pain Stated Complaint: CHEST PAIN ED Provider: [employer] Discharge Problem: Volume overload, S/P TAVR (transcatheter aortic valve replacement), S/P right coronary artery (RCA) stent placement, Dizziness Patient Disposition: Admitted As Inpatient Condition: Good Discharge Instructions Interventions: ED Discharge Assessment Last Done: 01/10/25 22:24 Discharge Problem: Volume overload Qualifiers: Hypervolemia type: other Qualified Code(s): E87.79 - Other fluid overload
[2025-01-10 19:23] LABS: Hematocrit (blood only) 32.8 % (42.0-52.0); Hemoglobin 11.7 g/dl (14.0-18.0); Immature Granulocytes # (auto) 0.06 K/uL (0.01-0.20); Immature Granulocytes % (auto) 0.9 %; Mean Corpuscular Hemoglobin 33.3 pg (25.0-34.0); Mean Corpuscular Volume 93.4 fL (80.0-100.0); Platelet Count 233 K/uL (130-400); RDW Standard Deviation 41.8 fL (36.4-46.3); Red Blood Count 3.51 M/uL (4.70-6.10); White Blood Count 6.40 K/ul (4.8-10.8)
[2025-01-10] MEDS: ASPIRIN CHEW 324 MG PO STA (19:34)
[2025-01-10 19:42] LABS: Alanine Aminotransferase 41.0 U/L (7-52); Albumin Globulin Ratio 1.1 (0.9-2); Alkaline Phosphatase 89.0 U/L (34-104); Anion Gap 7.0 (3-11); Bilirubin,Total 0.5 mg/dl (0.2-1.0); Blood Urea Nitrogen 21.0 mg/dl (6-23); Calcium 9.1 mg/dl (8.6-10.3); Carbon Dioxide 29.0 mmol/L (21-32); Chloride 102.0 mmol/L (98-107); Creatinine Clr Calc Pharmacy 88.9 ml/min; Globulin 3.6 gm/dl (2.5-4.0); Glucose 155.0 mg/dl (70-99(Fasting)); Lipase 13.0 U/L (11-82); Potassium 3.9 mmol/L (3.5-5.1); Sodium 138.0 mmol/L (136-145); Total Protein 7.4 gm/dl (6.0-8.3)
[2025-01-10 20:14] LABS: INR 1.0 (0.9-1.1); Partial Thromboplastin Time 31 Seconds (21-31); Prothrombin Time 10.9 Seconds (9.0-12.0)
--- NOTE | 2025-01-10 20:35 | History & Physical Report ---
Date of Service January 10, 2025 Assessment & Plan (1) Chest pain: (2) Anemia: (3) S/P TAVR (transcatheter aortic valve replacement): Plan 84-year-old male PMHx HTN, allergic rhinitis, BPPV, HLD, insomnia, BPH, trigeminal neuralgia, and s/p stenting of RCA in December 2024 and s/p TAVR 01/01/2025 who presents for chest pain and dizziness starting the day of arrival. ED evaluation reveals CBC without leukocytosis, H&H 11.7/32.8; PT/INR WNL; CMP BUN/creatinine ratio 25.9, glucose 155; troponin 14.6; lipase 13; CXR pending official read; EKG junctional rhythm with nonspecific ST abnormality at 53 bpm.; Provided with Bumex 0.5 mg IV and aspirin 243 mg p.o. in ED. #Chest pain/S/p TAVR and RCA stent (12/2024)/HTN/HLD Starting day of arrival; S/p stenting (RCA December 2024) and TAVR (January 01, 2025). Sudden onset of L sided chest heaviness with diaphoresis and sweating. Currently chest pain free. Does have some chest congestion at times, started on Doxycycline by outpatient provider on 01/07/2025. Does have LLE calf tenderness. Pt does take Bumex 1mg po and spironolactone 25mg po daily as outpatient. On plavix + ASA. Ezetimibe; Amlodipine. Received Bumex IV x 1 in ED. Given pt is s/p recent TAVRand having chest heaviness that has come and gone throughout ED course, admission completed. - CBC without leukocytosis, H/H 11.7/32.8 - CBC am - Trop 14.6, pending repeat; EKG junctional rhythm without ischemic changes @ 53 bpm - BNP 52 - CXR WNL - Echo 09/2023 EF 65%, mildly dilated aortic root and ascending aorta, moderate to severe , mild TR - pending repeat - Doppler LLE pending 2/2 L calf tenderness/edema - I+Os and daily standing weights - Hypertonic saline nebs for congestion - O2 prn - none at baseline - Chronic sinusitis, follows with pulm, is to follow with ENT -- Continue po doxy to completion - Continue home meds - Continue home dosing Bumex + spironolactone po - BMP am #Anemia No bleeding per patient, no change in BM. - H/H 11.7/32.8, lowest that it has been per our records - Iron panel pending, Vit B12 and folate pending #Insomnia- Trazodone - continue Dispo: Obs, med/tele VTE prophylaxis: SCDs This document was dictated utilizing [employer]. Please excuse any grammatical errors that may be secondary to use of this software. Admission and Anticipated Discharge Date Admission Date: 01/10/2025 History of Present Illness Chief Complaint: Chest pain Primary Care Provider: Dev Villanueva MD 84-year-old male PMHx HTN, allergic rhinitis, BPPV, HLD, insomnia, BPH, trigeminal neuralgia, and s/p stenting of RCA in December 2024 and s/p TAVR 01/01/2025 who presents for chest pain and dizziness starting the day of arrival. On the morning of arrival, patient was in his normal health, making phone calls and helping to take care of his . He states that around [id number] he got into his truck go down to the mailbox and collect the mail. He was outside, so he did turn the AC on and allowed the car to cool down before going down the driveway. He got to the mailbox, collected the mail, and then when he got back into his car he started to experience a heavy left-sided chest discomfort. He states that it did radiate into the back of his neck, but the pain in the back of his neck felt more stiff. He rates the pain at its worst a 6 out of 10 on the pain scale and describes that it was just a persistent pain that did not fully go away. He did become diaphoretic during the episode. Had some nausea without vomiting. At around 1715 he decided to take a nitroglycerin sublingually and this helped resolve his pain completely. However, few minutes after this he started to have some more discomfort and told his about his symptoms and his encouraged him to come be evaluated. His current pain is a 0 out of 10 on the pain scale, but he still having posterior neck stiffness. He does experience chronic constipation, often utilizing orange juice with Metamucil to alleviate this. His last normal bowel movement was the day BAR HOSTESS. He is having some abdominal fullness, stating that he occasionally has RLQ abdominal pain because he has to strain to have a bowel movement. He has also had some bilateral lower extremity edema which has seemed to improve slightly over the past week. Patient does have LLE calf tenderness. He is s/p TAVR. The Monday BAR HOSTESS (4 days BAR HOSTESS), he was started on doxycycline for chest congestion by his PCP. He states that at night he was having some significant congestion and starting to cough up phlegm. He is still having some of this chest congestion but states that it has improved significantly. He is not feverish and has not had any chills. No known sick contacts. He does not feel lightheaded or dizzy. No falls. He does also admit that he used to experience urinary urgency, but over the past few weeks to months this has changed and he sometimes feels that he does not have to go at all. He does occasionally have dribbling in his underwear after urinating. Overall denying palpitations, SOB, abdominal pain, diarrhea, LUTS, fever/chills, URI symptoms, numbness/tingling, weakness, or syncope. Patient does state that he helps to take care of his , expressing that he feels bad for her because 4 years ago she suffered from a stroke in has since needed a lot of medical attention which the patient himself helps to provide. He states that his mood is okay overall. ED evaluation reveals CBC without leukocytosis, H&H 11.7/32.8; PT/INR WNL; CMP BUN/creatinine ratio 25.9, glucose 155; troponin 14.6; lipase 13; CXR WNL; EKG junctional rhythm with nonspecific ST abnormality at 53 bpm.; Provided with Bumex 0.5 mg IV and aspirin 243 mg p.o. in ED. Please see Dr. Zaman's attestation for adjustments/additions to treatment plan. Allergies Allergy/AdvReac Type Severity Reaction Status Date / Time azithromycin Allergy Mild Hives Verified 01/10/25 20:28 Penicillins Allergy Mild HIVES Verified 01/10/25 20:28 Home Medications Medication Instructions Recorded Confirmed Type ezetimibe 10 mg tablet (Zetia) 10 mg PO QAM 08/30/19 01/10/25 History trazodone 100 mg tablet 100 mg PO HS 06/04/21 01/10/25 History albuterol sulfate 90 mcg/actuation 2 puff inhalation Q6H PRN 07/17/23 01/10/25 History aerosol inhaler Shortness Of Breath Or Wheezing aspirin 81 mg tablet,delayed 81 mg PO QAM 07/17/23 01/10/25 History release (Adult Low Dose Aspirin) carbamazepine 200 mg 200 mg PO BID 05/06/24 01/10/25 History capsule,extended release [id number] fluticasone propionate 50 1 spray intranasal DAILY 05/13/24 01/10/25 History mcg/actuation nasal spray,suspension amlodipine 5 mg tablet 5 mg PO QAM 01/10/25 01/10/25 History bumetanide 1 mg tablet 1 mg PO QAM 01/10/25 01/10/25 History clopidogrel 75 mg tablet 75 mg PO QAM 01/10/25 01/10/25 History doxycycline hyclate 100 mg tablet 100 mg PO BID 01/10/25 01/10/25 History melatonin 5 mg PO HS 01/10/25 01/10/25 History nitroglycerin 0.4 mg sublingual 0.4 mg sublingual .PRN/UD PRN 01/10/25 01/10/25 History tablet Chest Pain spironolactone 25 mg tablet 25 mg PO QAM 01/10/25 01/10/25 History Past Med/Surg History Problem List (Updated 01/10/25 @ 21:31 by Neil Stuart PA-C) S/P TAVR (transcatheter aortic valve replacement) Anemia Chest pain Trigeminal neuralgia (Acute) Pulmonary nodule Abnormal CT scan of lung Cough Chronic sinusitis Chronic SI joint pain Erectile dysfunction Benign localized prostatic hyperplasia with lower urinary tract symptoms (LUTS) Drug allergy Angioedema Post-operative state Right knee DJD Surgical History History of tonsillectomy History of neck surgery History of knee replacement History of carpal tunnel surgery History of cataract surgery Family History Father Cardiac disorder Diabetes Mother Cardiac disorder Diabetes Brother Cancer Social History Smoking Status: Unknown if ever smoked Second Hand Exposure: No; Hx Alcohol Use: No Hx Substance Use: No Preferred Language: Luxembourgish marital status: current occupational status: retired Feels Safe at Home: Yes Review of Systems Review of Systems: All systems reviewed & are unremarkable except as noted in Subjective Physical Exam Physical Exam: General: No acute distress Skin: Warm and dry Head: Normocephalic, atraumatic Eyes: PERRL, conjunctivae clear, sclera non-icteric ENT: External ear and ear canal without swelling; nose atraumatic; good dentition, tongue normal appearance, pharynx normal Neck: Supple, no LAD Cardio: RRR, no M/G/R, S1 and S2 normal Resp: No respiratory distress, decreased breath sounds LLL; Lungs CTA in all lobes bilaterally, no wheezes, rales, or rhonchi Abdomen: Soft, symmetric, nontender, slightly distended; No masses or hepatosplenomegaly; Bowel sounds normoactive MSK: No deformities; pulses palpable and equal; 1+ piting edema BLE, LLE calf tender to palpation, L > R in edema. Neuro: Awake, alert; Sensation intact bilaterally; CN grossly intact Psych: Appropriate mood and affect; good judgement and insight. Son present in room at time of visit. Results & Data Results & Data Vital Signs (Past 12 Hours) Vital Signs Temp Pulse Resp BP Pulse Ox O2 Del Method O2 Flow Rate 01/10/25 20:03 51 L 140/80 98 Room Air 01/10/25 19:31 52 L 14 135/79 97 01/10/25 19:12 54 L 16 98 Room Air 01/10/25 19:00 55 L 23 145/84 H 99 01/10/25 18:50 99 Room Air 0 01/10/25 18:46 54 L 01/10/25 18:43 54 L 16 153/86 H 99 01/10/25 18:34 36.4 C L 59 L 19 149/87 H 95 Room Air Laboratory Results 01/10/25 18:48 WBC 6.40 RBC 3.51 L Hgb 11.7 L Hct 32.8 L MCV 93.4 MCH 33.3 MCHC 35.7 RDW Std Deviation 41.8 RDW Coeff of Rylie 12.1 Plt Count 233 MPV 9.3 L Immature Gran % (Auto) 0.9 Neut % (Auto) 61.3 Lymph % (Auto) 23.1 [place] % (Auto) 10.6 Eos % (Auto) 3.6 Baso % (Auto) 0.5 Neut # (Auto) 3.92 Lymph # (Auto) 1.48 [place] # (Auto) 0.68 H Eos # (Auto) 0.23 Baso # (Auto) 0.03 Immature Gran # (Auto) 0.06 PT 10.9 INR 1.0 APTT 31 PTT Ratio 1.2 Sodium 138 Potassium 3.9 Chloride 102 Carbon Dioxide 29 Anion Gap 7 BUN 21 Creatinine 0.81 Est Cr Clr Drug Dosing 88.9 eGFR 88.03 BUN/Creatinine Ratio 25.9 H Glucose 155 H Calcium 9.1 Total Bilirubin 0.5 AST 23 ALT 41 Alkaline Phosphatase 89 Troponin I High Sens 14.6 Total Protein 7.4 Albumin 3.8 Globulin 3.6 Albumin/Globulin Ratio 1.1 Lipase 13 Diagnostic Findings Chest X-Ray 01/10/25 19:08 Chest radiograph, one view History: Chest pain Comparison: None Findings: Single AP view of the chest performed. No focal consolidation or pleural effusion. No pneumothorax. Aortic valve replacement. Battery pack generator over the left chest. The cardiomediastinal silhouette is within normal limits. Normal pulmonary vascularity. No evidence for lymphadenopathy. No visualized bony or soft tissue abnormality. Impression: Normal chest radiograph Electronically signed by Junior Rdz 01-10-2025 8:41 PM Medications Administered Bumetanide 0.5 mg IV Aspirin 243 mg p.o. ECG Additional Comments: Junctional rhythm, nonspecific ST abnormality 53 bpm, QRS 116, QT/QTc 462/433, PRT*/-13/0 Code Status & VTE Plan Code Status DNR/DNI Supervising Physician Co-Signing Physician Notes Patient seen and examined, chart reviewed, case discussed with Re and I agree with the assessment and plan as above. In brief, patient is an 84yo male with HTN, HLP, CAD s/p RCA stent in December 2024 and TAVR on 01/01/25 presenting with chest pain and dizziness. On exam patient is resting comfortably in bed, NAD Skin - no rash HEENT - MMM, Neck supple Heart - +S1/S2, regular, no m/r/g Lungs-CTA anteriorly Abd - soft, NT/ND No obvious clinical findings of CHF Labs and images reviewed Troponin=14.6 CXR - unremarkable EKG with junctional rhythm, no acute ischemic changes Assessment/Plan -Continue DAPT ASA and Plavix -Trend tropoin -Check 2D echo -Doppler obtained LLE d/t discomfort, awaiting results -Remainder as above PG Care Time/CCT Total # of Minutes Spent Total Time Spent with Patient: Total time spent is greater than 50% in coordination of care (as documented) at patient's floor/unit and/or counseling patient: Coding Level of Care Code 73175 INT INP/OBS CARE 3/75MIN Diagnoses Chest pain R07.9 Anemia D64.9 S/P TAVR (transcatheter aortic valve replacement) Z95.2
--- NOTE | 2025-01-10 20:42 | XRay Report ---
Chest radiograph, one view History: Chest pain Comparison: None Findings: Single AP view of the chest performed. No focal consolidation or pleural effusion. No pneumothorax. Aortic valve replacement. Battery pack generator over the left chest. The cardiomediastinal silhouette is within normal limits. Normal pulmonary vascularity. No evidence for lymphadenopathy. No visualized bony or soft tissue abnormality. Impression: Normal chest radiograph Electronically signed by Junior Rdz 01-10-2025 8:41 PM
[2025-01-10] MEDS ORDERED: ONDANSETRON INJ 2 MG/ML 2 ML VIAL IV PRN (23:25)
[2025-01-10] MEDS ORDERED: ALBUTEROL HFA 8 GM INHALER INH PRN (23:25)
[2025-01-10] MEDS ORDERED: NITROGLYCERIN SL 0.4 MG/TAB TAB SL PRN (23:25)
[2025-01-10] MEDS ORDERED: POLYETHYLENE (MIRALAX) 17 GM PACK PO PRN (23:25)
[2025-01-10] MEDS ORDERED: MAGNESIUM HYDROXIDE SUSP 30 ML UDC PO PRN (23:25)
[2025-01-10] MEDS ORDERED: MELATONIN 3 MG TAB PO PRN (23:47)
[2025-01-10] MEDS: BUMETANIDE 0.5 MG in SYRINGE 0 ML IV ONE (23:53)
[2025-01-11 01:22] LABS: Magnesium 1.9 mg/dl (1.7-2.4)
--- NOTE | 2025-01-11 01:33 | Communication Note ---
Date of Service: January 11, 2025 Alerted by nursing staff that pt may have developed new blocked PACs. Pt is here for chest pain. Went to bedside to see pt with overnight PA. Pt states he is still having mild chest pain symptoms, not worsened but not better. EKG obtained, but no dropped beats captured; appears to be first degree HB on EKG. Went to telemetry; several episodes of dropped beats noted. QRS appears regular during these episodes and monitor strips seem consistent with Mobitz II HB per my read. Attending notified. Will check mag overnight and replete as needed. Cardiology consult placed as pt also had recent TAVR and RCA stent and continues to have chest pain symptoms. Will hold B blockers and CCBs until cardio eval in the morning. Resident Activity Tracking Resident Involvement: Resident Care Provided Care Provided: Adult Hospital Medicine
[2025-01-11] MEDS: carBAMazepine XR 200 MG TABCR PO SCH (02:28)
--- NOTE | 2025-01-11 03:44 | Ultrasound Report ---
Exam(s): US VENOUS LEFT LOWER EXTREMITY EXAM: US Duplex Left Lower Extremity Veins CLINICAL HISTORY: Calf tenderness, edema. TECHNIQUE: Real-time duplex ultrasound scan of the left lower extremity veins integrating B-mode two-dimensional vascular structure, Doppler spectral analysis, color flow Doppler imaging and compression. COMPARISON: No relevant prior studies available. FINDINGS: Deep veins: Unremarkable. No Deep vein thrombosis in the visualized common femoral, femoral, proximal deep femoral or popliteal veins. The veins demonstrate normal color flow, are normally compressible, with normal phasic flow and/or augmentation response. Superficial veins: Unremarkable. No thrombus in the visualized great saphenous vein. Soft tissues: No acute findings. No popliteal cyst. IMPRESSION: No deep vein thrombosis of the left lower extremity. Electronically signed by: Ayesha Almeida MD 01/11/25 03:43 AM
[2025-01-11] MEDS ORDERED: SODIUM CHLOR 7% 4 ML NEB NEB SCH (07:00)
[2025-01-11 07:45] LABS: Hematocrit (blood only) 34.0 % (42.0-52.0); Hemoglobin 11.9 g/dl (14.0-18.0); Mean Corpuscular Hemoglobin 33.0 pg (25.0-34.0); Mean Corpuscular Volume 94.2 fL (80.0-100.0); Platelet Count 226 K/uL (130-400); RDW Standard Deviation 41.6 fL (36.4-46.3); Red Blood Count 3.61 M/uL (4.70-6.10); White Blood Count 6.40 K/ul (4.8-10.8)
[2025-01-11 08:04] VITALS: RESP 18
[2025-01-11 08:04] LABS: Anion Gap 7.0 (3-11); Blood Urea Nitrogen 21.0 mg/dl (6-23); Calcium 9.1 mg/dl (8.6-10.3); Carbon Dioxide 31.0 mmol/L (21-32); Chloride 102.0 mmol/L (98-107); Creatinine Clr Calc Pharmacy 92.7 ml/min; Glucose 192.0 mg/dl (70-99(Fasting)); Iron 56.0 mcg/dl (35-175); Potassium 4.1 mmol/L (3.5-5.1); Sodium 140.0 mmol/L (136-145); Total Iron Binding Cap Calc 222.0 mcg/dl (250-450); Transferrin 174.0 mg/dl (200-360); Transferrin (FE) Percent Satur 25.0 % (20-50)
[2025-01-11 08:29] LABS: Folate (Folic Acid),Ser orPlas 16.26 ng/ml (>5.38)
[2025-01-11 08:30] LABS: Vitamin B12 671.0 pg/ml (180-914)
[2025-01-11] MEDS ORDERED: carBAMazepine XR 200 MG TABCR PO SCH (09:00)
[2025-01-11] MEDS: ASPIRIN 81 MG ECTAB PO SCH (09:04)
[2025-01-11] MEDS: DOXYCYCLINE HYCLATE 100 MG CAP PO SCH (09:04)
[2025-01-11] MEDS: EZETIMIBE 10 MG TAB PO SCH (09:04)
[2025-01-11] MEDS: BUMETANIDE 1 MG TAB PO SCH (09:04)
[2025-01-11] MEDS: CLOPIDOGREL BISULFATE 75 MG TAB PO SCH (09:05)
[2025-01-11] MEDS: SPIRONOLACTONE 25 MG TAB PO SCH (09:05)
[2025-01-11] MEDS: FLUTICASONE PROPIONATE NA SPR 16 GM BTL SCH (09:05)
--- NOTE | 2025-01-11 10:06 | Electrocardiogram Report ---
Test Reason : Blood Pressure : */* mmHG Vent. Rate : 53 BPM Atrial Rate : * BPM P-R Int : * ms QRS Dur : 116 ms QT Int : 462 ms P-R-T Axes : * -13 0 degrees QTcB Int : 433 ms Sinus bradycardia with first degree AV block Nonspecific ST abnormality Abnormal ECG When compared with ECG of 30-Jun-2023 15:10, Sinus davis has replaced Sinus rhythm PVCs are no longer present Nonspecific T wave abnormality, worse in Inferior leads Confirmed by Deena Cruz ([id number]) on 01/11/2025 10:05:43 AM Referred By: REFERRED SELF Confirmed By: Deena Cruz
--- NOTE | 2025-01-11 10:27 | Cardiology Consultation ---
Date of Consultation January 11, 2025 Assessment & Plan (1) Angina, class III: (2) Dizziness: (3) S/P right coronary artery (RCA) stent placement: (4) S/P TAVR (transcatheter aortic valve replacement): (5) Trigeminal neuralgia: (6) Bradycardia: Plan add oral nitrates to meds as antianginal. He will likely NOT tolerate BB due to relative bradycardia. I called [facility] and he has not had any significant arrhythmias or davis since placed on 01/02. Cont DAPT along with CCB. Can follow up with Dr. Moe later this month for assessment. His FEATURES EDITOR of the LAD may not be able to be treated with CBI. Follow for now. If remains stable can go home this afternoon. He is very anxious to leave due to his being home with hx of stroke. Thank you for allowing me to participate in the care of this very nice gentleman. I will have him follow-up with Dr. Moe after discharge. History of Present Illness Reason for Consultation: Chest pain dizziness Attending Physician: Blake Fox MD, PhD History of Present Illness Mr. Flo Coe is a very nice 84-year-old gentleman known to Dr. Alberto Moe who underwent heart catheterization where he was found to have significant coronary artery disease. He has a totally occluded LAD which has collaterals and was treated medically. He also had a significant RCA disease which was stented. On January 01 he underwent TAVR with Dr. Waldo Betancourt without issue. He was sent home with an M cot. Mr. Corona reports getting occasional chest discomfort even since his TAVR. Overall he was feeling well up until yesterday he has had a very busy and hectic week with lots of activities as well as problems with his in the middle of the week where she fell was bruised and ended up needing to come into the emergency room. He was driving to his mailbox when he started experiencing some weakness as well as dizziness and tightness in his chest. He called his son and eventually presented to the emergency room. He did not have EKG changes and his cardiac enzymes thus far have been unremarkable. We reviewed his recent cardiac evaluation as well as the echo that was done this morning. His LV function appears normal his TAVR is well- seated there is no significant aortic insufficiency. Allergies Allergy/AdvReac Type Severity Reaction Status Date / Time azithromycin Allergy Mild Hives Verified 01/10/25 20:28 Penicillins Allergy Mild HIVES Verified 01/10/25 20:28 Home Medications Medication Instructions Recorded Confirmed Type ezetimibe 10 mg tablet (Zetia) 10 mg PO QAM 08/30/19 01/10/25 History trazodone 100 mg tablet 100 mg PO HS 06/04/21 01/10/25 History albuterol sulfate 90 mcg/actuation 2 puff inhalation Q6H PRN 07/17/23 01/10/25 History aerosol inhaler Shortness Of Breath Or Wheezing aspirin 81 mg tablet,delayed 81 mg PO QAM 07/17/23 01/10/25 History release (Adult Low Dose Aspirin) carbamazepine 200 mg 200 mg PO BID 05/06/24 01/10/25 History capsule,extended release [id number] fluticasone propionate 50 1 spray intranasal DAILY 05/13/24 01/10/25 History mcg/actuation nasal spray,suspension bumetanide 1 mg tablet 1 mg PO QAM 01/10/25 01/10/25 History clopidogrel 75 mg tablet 75 mg PO QAM 01/10/25 01/10/25 History doxycycline hyclate 100 mg tablet 100 mg PO BID 01/10/25 01/10/25 History melatonin 5 mg PO HS 01/10/25 01/10/25 History nitroglycerin 0.4 mg sublingual 0.4 mg sublingual .PRN/UD PRN 01/10/25 01/10/25 History tablet Chest Pain spironolactone 25 mg tablet 25 mg PO QAM 01/10/25 01/10/25 History isosorbide mononitrate 30 mg 30 mg PO QAM #30 tabs 01/11/25 Rx tablet,extended release 24 hr Patient History Surgical History History of tonsillectomy History of neck surgery History of knee replacement History of carpal tunnel surgery History of cataract surgery Family History Father Cardiac disorder Diabetes Mother Cardiac disorder Diabetes Brother Cancer Social History Smoking Status: Never smoker Second Hand Exposure: No; Do You Dip or Chew Tobacco: No; Hx Alcohol Use: No Hx Substance Use: No Preferred Language: Turkish Communication Ability: Effective Lens Blank Gauger Required: No Beliefs That Will Affect Care: None marital status: Current Living Situation: Spouse current occupational status: retired Other Information That Helps Us Care for You: No Feels Safe at Home: Yes Safety Concerns: Feels Safe At This Time Assistive Devices: Denture - Upper, Glasses and Walker Review of Systems Review of Systems: All systems reviewed & are unremarkable except as noted in HPI & below Physical Exam Physical Exam: Awake alert and oriented x 3 Respiratory: Clear to auscultation bilaterally Cardiovascular: Aortic valve sounds well-appreciated no AI noted Trace nonpitting edema Results & Data Vital Signs (Past 12 Hours) Vital Signs Temp Pulse Pulse Resp BP BP Pulse Ox 01/11/25 08:03 36.3 C L 56 L 18 154/76 H 95 01/11/25 08:00 01/11/25 07:53 49 L 01/11/25 04:21 36.7 C 57 L 20 131/74 95 01/11/25 00:39 51 L 01/10/25 23:44 01/10/25 23:32 36.4 C L 56 L 18 188/81 H 98 01/10/25 22:24 36.6 C 52 L 14 140/85 96 O2 Del Method 01/11/25 08:03 Room Air 01/11/25 08:00 Room Air 01/11/25 07:53 01/11/25 04:21 Room Air 01/11/25 00:39 01/10/25 23:44 Room Air 01/10/25 23:32 Room Air 01/10/25 22:24 Room Air Laboratory Results Abnormal lab results 01/10/25 01/11/25 Range/Units 18:48 06:24 RBC 3.51 L 3.61 L (4.70-6.10) M/uL Hgb 11.7 L 11.9 L (14.0-18.0) g/dl Hct 32.8 L 34.0 L (42.0-52.0) % MPV 9.3 L (9.4-12.4) fL [place] # (Auto) 0.68 H (0.11-0.59) K/uL BUN/Creatinine Ratio 25.9 H 26.3 H (10-20) Glucose 155 H 192 H (70-99(Fasting)) mg/dl TIBC 222 L (250-450) mcg/dl Transferrin 174 L (200-360) mg/dl
[2025-01-11] MEDS: ISOSORBIDE MONO EXTENDED REL 30 MG TABCR PO SCH (10:54)
[2025-01-11 11:16] VITALS: BP 148/82; PULSE 54; TEMP 98.1; O2SAT 97
--- NOTE | 2025-01-11 13:18 | Discharge Summary ---
Discharge Summary Date of Service January 11, 2025 Principal Dx & Hospital Course #1 = Principal Diagnosis (1) Chest pain: Patient ruled out for acute NSTEMI with serial troponins x 2, serial EKGs x 2, and TTE: cf., Troponin-I #1 14.6 pg/mL (01/10/2025, 6:48pm). cf., Troponin-I #2 15.5 pg/mL (01/11/2025, 12:09am). cf., EKG #1 (01/10/2025, 6:42pm): sinus bradycardia @ 53, QTC 433, no acute ST depressions/elevations (by my review). cf., EKG #2 (01/11/2025, 12:53am): sinus bradycardia @ 52, ND 338, QTC 414, no acute ST depressions/elevations (by my review). cf., TTE (01/11/2025, 6:30am): 1. LV normal size with LVEF 55-60%. 2. Mild concentric LVH. 3. LV wall motion normal. 4. TAVR well-seated. 5. No significant AR. 6. absent. 7. Grade I diastolic dysfunction. (as per CARDS Deena Cruz). Patient also underwent formal CARDS Service evaluation with Interventional CARDS Dr. Deena Cruz, who opined that patient most probably does not have acute myocardial ischemia, and instead, patient suffers from sinus bradycardia-causing chest pain. Hence, Dr. Cruz did not recommend beta veronica and advised that patient stop taking his home-scheduled amlodipine 5mg PO qam; instead, Dr. Cruz recommended that patient continue with a nitrate, namely, patient's home- scheduled isosorbide mononitrate 30mg PO daily, which the patient tolerated well on 01/11/2025, 10:54am. Patient was subsequently discharged back to his home on 01/11/2025 OFF home- scheduled amlodipine 5mg PO qam and ON home-scheduled isosorbide mononitrate 30mg PO daily. Patient was also advised to follow up with his own CARDS Dr. Db Mauro within 5-7 days of hospital discharge. (2) S/P TAVR (transcatheter aortic valve replacement): cf., TTE (01/11/2025, 6:30am): 1. LV normal size with LVEF 55-60%. 2. Mild concentric LVH. 3. LV wall motion normal. 4. TAVR well-seated. 5. No significant AR. 6. absent. 7. Grade I diastolic dysfunction. (as per CARDS Deena Stoudt). Observe as there are no signs of TAVR malfunction/dysfunction. (3) Chronic diastolic (congestive) heart failure: cf., TTE (01/11/2025, 6:30am): 1. LV normal size with LVEF 55-60%. 2. Mild concentric LVH. 3. LV wall motion normal. 4. TAVR well-seated. 5. No significant AR. 6. absent. 7. Grade I diastolic dysfunction. (as per CARDS Deena Stoudt). Not acute exacerbation of chronic diastolic CHF as patient reports no weight gain, paroxysmal nocturnal dyspnea, orthopnea, or platypnea on observation date 01/10/2025 or discharge date 01/11/2025. Hence, patient continues to receive medical management of chronic diastolic CHF which entails continued adherence to a 2 gram Na diet, daily weights, strict I/O, home-scheduled bumex 1mg PO qam, home-scheduled spironolactone 215mg PO qam, and home-scheduled isosorbide mononitrate 30mg PO qam, while in [facility] and on hospital discharge back to his home on 01/11/2025. (4) Normocytic normochromic anemia: cf., admission Hb 11.7 g/dL, MCV 93.4, MCHC 35.7 (01/10/2025, 6:48pm). cf., discharge Hb 11.9 g/dL, MCV 94.2, MCHC 35.0 (01/11/2025, 6:24am). cf., chronic normocytic, normochromic anemia with historical low-normal Hb 13.8 g/dL, MCV 89.2, MCHC 34.9 (05/26/2024, 10:26am). Patient reports no mucosal bleeding and remains hemodynamically stable. Etiology of chronic normocytic, normochromic anemia remains unclear. Given patient's advanced age > 80 years, no recommendations for colonoscopy and/or EGD are made. Observe. Plan 84 years old male with PMH of FULL CODE @ home, obesity with BMI 36.0 (height 180.3cm, weight 117.2 kg), chronic normocytic, normochromic anemia with historical low-normal Hb 13.8 g/dL, MCV 89.2, MCHC 34.9 (05/26/2024, 10:26am), trigeminal neuralgia on carbamazepine 200mg PO bid, allergic rhinitis on fluticasone nasal spray, 50ug/spray, 1 spray to each nostril daily, BPPV, insomnia disorder on trazodone 100mg PO qhs and melatonin 5mg PO qhs, BPH, HTN on amlodipine 5mg PO qam, bumex 1mg PO qam, spironolactone 25mg PO qam, and isosorbide mononitrate 30mg PO qam, severe aortic stenosis, CAD with totally occluded LAD with collateral blood flow, s/p RCA stent (12/14/2024, cardiac catheterization @ [facility] Interventional CARDS Dr. Artemio Howard) now on ASA 81mg PO daily, plavx 75mg PO daily, and ezetimibe 10mg PO qam, and severe aortic stenosis s/p TAVR (01/01/2025, [facility] Interventional CARDS Dr. Waldo Betancourt), who presented to [facility] ER on 01/10/2025 with complaints of left-sided chest pain and dizziness starting on 01/10/2025 at home at rest. In [facility], patient was afebrile @ 36.4 degrees Celsius, HR 59, RR 19, O2 sat 95% on room air, and BP 149/87 (01/10/2025, 6:34pm). Exam was noted for a clear and non-tender chest. Labs in [facility] ER included: WBC 6.40, N61 L23 M11 E4 B1, Hb 11.7, MCV 93.4, MCHC 35.7, platelet 233 (01/10/2025, 6:48pm). Na 138, K 3.9, BUN 21, creatinine 0.81, glucose 155, Ca 9.1 (01/10/2025, 6:48pm). Troponin-I #1 14.6 pg/mL (01/10/2025, 6:48pm). Troponin-I #2 15.5 pg/mL (01/11/2025, 12:09am). Additional testing in [facility] ER included: Portable CXR (01/10/2025, 7:08pm): No infiltrate, effusion, cardiomegaly, pulmonary vascular congestion, or pneumothorax (by my review). LLE venous doppler (01/10/2025, 9:21pm): No LLE DVT. EKG #1 (01/10/2025, 6:42pm): sinus bradycardia @ 53, QTC 433, no acute ST depressions/elevations (by my review). EKG #2 (01/11/2025, 12:53am): sinus bradycardia @ 52, ND 338, QTC 414, no acute ST depressions/elevations (by my review). Patient was subsequently placed in OBSERVATION on the hospitalist service @ [facility] on 01/10/2025 withe the following diagnoses: 1. Atypical chest pain, s/p PABLO, in the setting of sinus bradycardia. 2. Normocytic, normochromic anemia with admission Hb 11.7 g/dL, MCV 93.4, MCHC 35.7 (, 6:48pm), of unclear etiology. Initial Plan in [facility] ER included: #Chest pain/S/p TAVR and RCA stent (12/2024)/HTN/HLD Starting day of arrival; S/p stenting (RCA December 2024) and TAVR (January 01, 2025). Sudden onset of L sided chest heaviness with diaphoresis and sweating. Currently chest pain free. Does have some chest congestion at times, started on Doxycycline by outpatient provider on 01/07/2025. Does have LLE calf tenderness. Pt does take Bumex 1mg po and spironolactone 25mg po daily as outpatient. On plavix + ASA. Ezetimibe; Amlodipine. Received Bumex IV x 1 in ED. Given pt is s/p recent TAVRand having chest heaviness that has come and gone throughout ED course, admission completed. - CBC without leukocytosis, H/H 11.7/32.8 - CBC am - Trop 14.6, pending repeat; EKG junctional rhythm without ischemic changes @ 53 bpm - BNP 52 - CXR WNL - Echo 09/2023 EF 65%, mildly dilated aortic root and ascending aorta, moderate to severe , mild TR - pending repeat - Doppler LLE pending 2/2 L calf tenderness/edema - I+Os and daily standing weights - Hypertonic saline nebs for congestion - O2 prn - none at baseline - Chronic sinusitis, follows with pulm, is to follow with ENT -- Continue po doxy to completion - Continue home meds - Continue home dosing Bumex + spironolactone po - BMP am #Anemia No bleeding per patient, no change in BM. - H/H 11.7/32.8, lowest that it has been per our records - Iron panel pending, Vit B12 and folate pending #Insomnia- Trazodone - continue Dispo: Obs, med/tele VTE prophylaxis: SCDs This document was dictated utilizing [employer]. Please excuse any gr ammatical errors that may be secondary to use of this software. Admission HPI Per Admitting Provider 84-year-old male PMHx HTN, allergic rhinitis, BPPV, HLD, insomnia, BPH, trigeminal neuralgia, and s/p stenting of RCA in December 2024 and s/p TAVR 01/01/2025 who presents for chest pain and dizziness starting the day of arrival. On the morning of arrival, patient was in his normal health, making phone calls and helping to take care of his . He states that around [id number] he got into his truck go down to the mailbox and collect the mail. He was outside, so he did turn the AC on and allowed the car to cool down before going down the driveway. He got to the mailbox, collected the mail, and then when he got back into his car he started to experience a heavy left-sided chest discomfort. He states that it did radiate into the back of his neck, but the pain in the back of his neck felt more stiff. He rates the pain at its worst a 6 out of 10 on the pain scale and describes that it was just a persistent pain that did not fully go away. He did become diaphoretic during the episode. Had some nausea without vomiting. At around 1715 he decided to take a nitroglycerin sublingually and this helped resolve his pain completely. However, few minutes after this he started to have some more discomfort and told his about his symptoms and his encouraged him to come be evaluated. His current pain is a 0 out of 10 on the pain scale, but he still having posterior neck stiffness. He does experience chronic constipation, often utilizing orange juice with Metamucil to alleviate this. 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 He is having some abdominal fullness, stating that he occasionally has RLQ abdominal pain because he has to strain to have a bowel movement. He has also had some bilateral lower extremity edema which has seemed to improve slightly over the past week. Patient does have LLE calf tenderness. He is s/p TAVR. The Monday DOCUMENT MANAGEMENT TECHNICIAN (4 days DOCUMENT MANAGEMENT TECHNICIAN), he was started on doxycycline for chest congestion by his PCP. He states that at night he was having some significant congestion and starting to cough up phlegm. He is still having some of this chest congestion but states that it has improved significantly. He is not feverish and has not had any chills. No known sick contacts. He does not feel lightheaded or dizzy. No falls. He does also admit that he used to experience urinary urgency, but over the past few weeks to months this has changed and he sometimes feels that he does not have to go at all. He does occasionally have dribbling in his underwear after urinating. Overall denying palpitations, SOB, abdominal pain, diarrhea, LUTS, fever/chills, URI symptoms, numbness/tingling, weakness, or syncope. Patient does state that he helps to take care of his , expressing that he feels bad for her because 4 years ago she suffered from a stroke in has since needed a lot of medical attention which the patient himself helps to provide. He states that his mood is okay overall. ED evaluation reveals CBC without leukocytosis, H&H 11.7/32.8; PT/INR WNL; CMP BUN/creatinine ratio 25.9, glucose 155; troponin 14.6; lipase 13; CXR WNL; EKG junctional rhythm with nonspecific ST abnormality at 53 bpm.; Provided with Bumex 0.5 mg IV and aspirin 243 mg p.o. in ED. Please see Dr. Zaman's attestation for adjustments/additions to treatment plan. Discharge Exam Constitutional General: Comfortable, coherent, and cooperative. Not confused or obtunded, but lethargic. Patient speaks very slowly, but in complete, fluent, and articulate 3-5 word sentences without pause, interruption, cough, or wheeze with O2 sat 97% on room air (01/11/2025, 12:27pm). HEENT: Normocephalic, atraumatic. No nystagmus, gaze paresis, anisocoria, miosis, mydriasis, hyphema, scleral injection, conjunctivitis, or pterygium. No otorrhea or rhinorrhea. No pharyngeal erythema, edema, or discharge. Neck: Supple, no stridor, bruit, goiter, or hepato-jugular reflux. Jugular venous pressure is estimated to be 3 cm above the sternal angle of Cedric, which in turn, is 5 cm above the level of the right atrium; with jugular venous pressure estimated to be 8 cm, then, there is no jugular venous distention on 01/11/2025. Lymphatics: No cervical (anterior/posterior), supraclavicular, infraclavicular, axillary, epitrochlear, or inguinal adenopathy. Chest: Symmetric rise and fall with respirations. Non-tender to palpation. Lungs: Coarse breath sounds bilaterally. No audible expiratory wheeze, egophony, pectoriloquy, increase in tactile fremitus, or flatness/dullness to percussion at the bases. Heart: Regular rate and rhythm. S1 and S2 noted. No S3 or S4 summation gallop. No tripartite friction rub. Grade II/ early systolic murmur @ LLSB without radiation to the carotids, axilla, or back, and which remains invariant in regards to the respiratory cycle. Abdomen: Soft, non-tender, non-distended. No rebound, guarding, Sawant's sign, or organomegaly. Bowel sounds auscultated in all 4 quadrants. Extremities: No clubbing, cyanosis, or edema. Skin: No decubitus ulcer, exanthem, or enanthem. Urology: No vitale catheter. No urethral discharge. Psychiatry: No suicidal ideation. No anxiety. No insomnia. Smiles appr opriately. Discharge Plan Discharge Items Patient Disposition: Home - Self-Care Reason For Visit: CHEST PAIN Discharge Diagnosis: Bradycardia causing chest pain. Condition on Discharge: Good Activity: Resume your previous activity Lifting: Gradually increase as tolerated Bathing: No limitations Exercise/Sports: Gradually increase as tolerated Driving/Machine Use: No limitations Weightbearing: Full weightbearing Non-emergency contact: Primary Care Provider Call non-emergency contact if: you have any medication questions Follow-up/Referrals: Deena Cruz DO [Physician] - (See your Cap Cutter Dr. Deena Cruz within 5-7 days of hospital discharge date 01/11/2025, to discuss how you feel after starting isosorbide mononitrate 30mg PO daily on 01/11/2025.) Dev Villanueva MD [Primary Care Provider] - (See your PCP Dr. Dev Villanueva within 5-7 days of hospital discharge date 01/11/2025, to discuss how you feel after starting isosorbide mononitrate 30mg PO daily on 01/11/2025.) Diet: Heart Healthy Addtl Attending Provider Instructions: 1. See your Primary Care Provider Dr. Dev Villanueva within 5-7 days of hospital discharge date 01/11/2025, to discuss how you feel after starting isosorbide mononitrate 30mg PO daily on 01/11/2025. 2. See your Cap Cutter Dr. Deena Cruz within 5-7 days of hospital discharge date 01/11/2025, to discuss how you feel after starting isosorbide mononitrate 30mg PO daily on 01/11/2025. Pending Studies at Discharge: No Stand-Alone Forms: My [facility], Smoking Cessation Medications and DC Order Prescriptions: New isosorbide mononitrate 30 mg Tablet Extended Release 24 Hr 30 mg PO QAM Qty: 30 0RF Continued aspirin [Adult Low Dose Aspirin] 81 mg tablet,delayed release (DR/EC) 81 mg PO QAM albuterol sulfate 90 mcg/actuation HFA aerosol inhaler 2 puff inhalation Q6H PRN (Reason: Shortness Of Breath Or Wheezing) ezetimibe [Zetia] 10 mg tablet 10 mg PO QAM trazodone 100 mg tablet 100 mg PO HS fluticasone propionate 50 mcg/actuation spray,suspension 1 spray intranasal DAILY Rx Instructions: administer into each nostril doxycycline hyclate 100 mg tablet 100 mg PO BID Rx Instructions: begin 01/07/25 x 10 days spironolactone 25 mg tablet 25 mg PO QAM melatonin tablet 5 mg PO HS clopidogrel 75 mg tablet 75 mg PO QAM nitroglycerin 0.4 mg tablet, sublingual 0.4 mg sublingual .PRN/UD PRN (Reason: Chest Pain) bumetanide 1 mg tablet 1 mg PO QAM carbamazepine 200 mg capsule, ER multiphase 12 hr 200 mg PO BID Discontinued amlodipine 5 mg tablet 5 mg PO QAM Discharge Orders: Discharge Order (Routine); Ordered 01/11/25 Ordered By: Blake Fox Admission Data Admit Date/Time: 01/10/25 21:16 Attending Provider: Blake Fox Admit Provider: Shahla Zaman Primary Care Provider: Dev Villanueva Other Providers: Shahla Zaman; Deena Cruz Other Interventions: Discharge Summary Assessment (RN) Last Done: 01/11/25 12:27 Hospital Stay Data Consultations 01/10/25 20:26 ED Decision to Admit Stat 01/11/25 01:25 Consult Cardiology Routine Diagnostic Imagining Performed 01/10/25 21:21 US venous doppler LE LT Routine Pending Results Patient Have Any Pending Studies at Discharge: No Discharge Instructions Given to Patient (Per Discharging Provider) 1. See your Primary Care Provider Dr. Dev Villanueva within 5-7 days of hospital discharge date 01/11/2025, to discuss how you feel after starting isosorbide mononitrate 30mg PO daily on 01/11/2025. 2. See your Cap Cutter Dr. Deena Cruz within 5-7 days of hospital discharge date 01/11/2025, to discuss how you feel after starting isosorbide mononitrate 30mg PO daily on 01/11/2025. Total Time Total Time Spent Total Time Spent (In Minutes): 35 minutes. Of this time period, 19 minutes were spent in coordinating patient's discharge. Coding Level of Care Code 59674 INP/OBS DISCH >30 MIN Diagnoses Chest pain R07.9 S/P TAVR (transcatheter aortic valve replacement) Z95.2 Chronic diastolic (congestive) heart failure I50.32 Normocytic normochromic anemia D64.9
--- NOTE | 2025-01-13 10:03 | Electrocardiogram Report ---
Test Reason : Blood Pressure : */* mmHG Vent. Rate : 52 BPM Atrial Rate : 52 BPM P-R Int : 338 ms QRS Dur : 118 ms QT Int : 446 ms P-R-T Axes : 41 -18 24 degrees QTcB Int : 414 ms Sinus bradycardia with 1st degree A-V block Low voltage QRS Non-specific intra-ventricular conduction delay Nonspecific ST and T wave abnormality Abnormal ECG When compared with ECG of 10-Jan-2025 18:42, Sinus rhythm has replaced Junctional rhythm Nonspecific T wave abnormality now evident in Lateral leads Confirmed by Db Mauro ([id number]) on 01/13/2025 10:03:00 AM Referred By: REFERRED SELF Confirmed By: Db Mauro
== END 2025-01-11 13:04 | disposition home or self-care (01) ==
LOC: 2N 18:33 → ED 18:33 → SUATTDRO 21:16 → 2N 22:24